=== PATIENT | female | born 1945 | race African-American/Black ===

== ENCOUNTER 2019-04-15 23:46 | Emergency (ER) | payer MEDICARE, MEDICAID ==
[~2019-04-15] VITALS: Ht 165.1 cm; Wt 104.0 kg
[~2019-04-15 23:46] MED LIST: BENAZAPRIL; CLONIDINE; HYDROCODONE; METF500T PO; RISP1 PO; SIMVASTATIN; ZYPREXA
[2019-04-16 04:25] LABS: BASOPHILS % 0.6 % (0.0-2.0); EOSINOPHILS % 1.5 % (0.0-5.0); HEMATOCRIT. 39.8 % (36.0-48.0); HEMOGLOBIN. 13.1 g/dL (12.0-16.0); LYMPHOCYTES % 41.6 % (20.0-50.0); MEAN CORPUSCULAR HEMOGLOBIN 29.4 pg (28.0-32.0); MEAN CORPUSCULAR VOLUME 89.4 fL (81.0-99.0); MEAN PLATELET VOLUME 9.2 fl (7.4-10.4); MONOCYTES % 5.7 % (2.0-8.0); NEUTROPHILS % 50.6 % (40.0-76.0); PLATELET 183 x1000/uL (130-400); RED BLOOD CELL COUNT 4.45 mill/uL (4.2-5.4); RED CELL DISTRIBUTION WIDTH 14.3 % (11.6-14.6)
[2019-04-16 04:33] LABS: CHLORIDE 111 mEq/L (98-107)
[2019-04-16 04:37] LABS: ETHANOL BLOOD < 10 mg/dL
[2019-04-16] MEDS ORDERED: CLONIDINE 0.2MG TABLET PO ONE (20:15)
[2019-04-16 21:03] LABS: CLARITY URINE CLEAR (CLEAR); COLOR URINE YELLOW (YELLOW); KETONES URINE NEGATIVE (NEGATIVE); LEUKOCYTE ESTERASE URINE NEGATIVE (NEGATIVE); NITRITE URINE NEGATIVE (NEGATIVE); OCCULT BLOOD URINE NEGATIVE (NEGATIVE); PH URINE 6.5 (4.5-8.0); PROTEIN URINE NEGATIVE (NEGATIVE); SPECIFIC GRAVITY URINE 1.015 (1.005-1.030); UROBILINOGEN URINE 0.2 E.U./dL (0.2-1.0)
[2019-04-16 21:12] LABS: *AMPHETAMINES SCREEN URINE NEGATIVE (NEGATIVE)
[2019-04-16 21:13] LABS: *BARBITURATES SCREEN URINE NEGATIVE (NEGATIVE); *BENZODIAZEPINES SCREEN URINE NEGATIVE (NEGATIVE); *COCAINE SCREEN URINE NEGATIVE (NEGATIVE); METHADONE URINE SCREEN NEGATIVE (NEGATIVE); OPIATES URINE SCREEN NEGATIVE (NEGATIVE)
[2019-04-16 21:14] LABS: CANNABINOID URINE SCREEN NEGATIVE (NEGATIVE); PHENCYCLIDINE URINE SCREEN NEGATIVE (NEGATIVE)
[2019-04-17 09:00] VITALS: BP 144/79
== END 2019-04-17 09:26 | disposition home or self-care (01) ==
LOC: ER 23:46
DX: F20.9 Schizophrenia, unspecified (principal); R45.851 Suicidal ideations; F31.9 Bipolar disorder, unspecified; E11.9 Type 2 diabetes mellitus without complications; I10 Essential (primary) hypertension; M19.90 Unspecified osteoarthritis, unspecified site; F17.210 Nicotine dependence, cigarettes, uncomplicated; Z79.84 Long term (current) use of oral hypoglycemic drugs; Z98.890 Other specified postprocedural states
CPT/HCPCS: 82962; 99284

== ENCOUNTER 2019-04-22 20:46 | Emergency (ER) | payer MEDICARE, MEDICAID ==
[~2019-04-22] VITALS: Ht 172.7 cm; Wt 88.0 kg
[2019-04-22 20:54] VITALS: BP 200/102
== END 2019-04-23 00:23 | disposition left against medical advice (07) ==
LOC: ER 21:17
DX: R10.9 Unspecified abdominal pain (principal); Z53.21 Procedure and treatment not carried out due to patient leaving prior to being seen by health care provider

== ENCOUNTER 2019-04-23 22:10 | Emergency (ER) | payer MEDICARE, MEDICAID ==
[~2019-04-23] VITALS: Ht 165.1 cm; Wt 104.0 kg
[2019-04-24] MEDS ORDERED: IBUPROFEN 400MG TABLET PO ONE (01:15)
[2019-04-24 04:57] VITALS: BP 108/55
== END 2019-04-24 05:02 | disposition home or self-care (01) ==
LOC: ER 22:18
DX: M25.562 Pain in left knee (principal); M25.561 Pain in right knee; M79.622 Pain in left upper arm; M62.838 Other muscle spasm; Y93.89 Activity, other specified; W18.39XA Other fall on same level, initial encounter; Y92.811 Bus as the place of occurrence of the external cause
CPT/HCPCS: 73060; 73562; 99284

== ENCOUNTER 2019-06-05 14:57 | Emergency (ER) | payer MEDICARE, MEDICAID ==
[~2019-06-05] VITALS: Ht 165.1 cm; Wt 78.0 kg
[2019-06-05] MEDS ORDERED: RISPERIDONE 1MG TABLET PO STA (17:42)
[2019-06-05 18:19] LABS: BASOPHILS % 0.9 % (0.0-2.0); EOSINOPHILS % 2.1 % (0.0-5.0); HEMATOCRIT. 42.6 % (36.0-48.0); HEMOGLOBIN. 13.8 g/dL (12.0-16.0); LYMPHOCYTES % 33.6 % (20.0-50.0); MEAN CORPUSCULAR HEMOGLOBIN 28.8 pg (28.0-32.0); MEAN CORPUSCULAR VOLUME 88.7 fL (81.0-99.0); MEAN PLATELET VOLUME 9.8 fl (7.4-10.4); MONOCYTES % 6.9 % (2.0-8.0); NEUTROPHILS % 56.5 % (40.0-76.0); PLATELET 191 x1000/uL (130-400); RED CELL DISTRIBUTION WIDTH 14.3 % (11.6-14.6)
[2019-06-05 18:24] LABS: CHLORIDE 112 mEq/L (98-107)
[2019-06-05 18:29] LABS: ETHANOL BLOOD < 10 mg/dL
[2019-06-05] MEDS ORDERED: SODIUM CHLORIDE 0.9% 500 ML IV ONE (19:56)
[2019-06-06 08:10] LABS: KETONES URINE NEGATIVE (NEGATIVE); LEUKOCYTE ESTERASE URINE NEGATIVE (NEGATIVE); NITRITE URINE NEGATIVE (NEGATIVE); OCCULT BLOOD URINE NEGATIVE (NEGATIVE); PH URINE 5.5 (4.5-8.0); PROTEIN URINE NEGATIVE (NEGATIVE); SPECIFIC GRAVITY URINE 1.028 (1.005-1.030); UROBILINOGEN URINE 0.2 E.U./dL (0.2-1.0)
[2019-06-06 08:11] LABS: CLARITY URINE SL HAZY (CLEAR); COLOR URINE YELLOW (YELLOW)
[2019-06-06 08:26] LABS: *AMPHETAMINES SCREEN URINE NEGATIVE (NEGATIVE); *BARBITURATES SCREEN URINE NEGATIVE (NEGATIVE); *BENZODIAZEPINES SCREEN URINE NEGATIVE (NEGATIVE); *COCAINE SCREEN URINE NEGATIVE (NEGATIVE)
[2019-06-06 08:27] LABS: CANNABINOID URINE SCREEN NEGATIVE (NEGATIVE); METHADONE URINE SCREEN NEGATIVE (NEGATIVE); OPIATES URINE SCREEN NEGATIVE (NEGATIVE); PHENCYCLIDINE URINE SCREEN NEGATIVE (NEGATIVE)
[2019-06-06 17:57] VITALS: BP 154/76
== END 2019-06-06 17:58 | disposition home or self-care (01) ==
LOC: ER 14:57
DX: R45.851 Suicidal ideations (principal); Z91.19 Patient's noncompliance with other medical treatment and regimen; I10 Essential (primary) hypertension; E11.9 Type 2 diabetes mellitus without complications; F20.9 Schizophrenia, unspecified
CPT/HCPCS: 36415; 71045; 80053; 80305; 80307; 80320; 80329; 81003; 85025; 99284; J7040; G0480

== ENCOUNTER 2019-07-04 20:05 | Emergency (ER) | payer MEDICARE, MEDICAID ==
[~2019-07-04] VITALS: Ht 162.6 cm; Wt 84.0 kg
[2019-07-05] MEDS ORDERED: ACETAMINOPHEN 325MG TABLET PO ONE (05:45)
[2019-07-05 07:35] VITALS: BP 146/93
== END 2019-07-05 08:19 | disposition left against medical advice (07) ==
LOC: ER 20:05
DX: J40 Bronchitis, not specified as acute or chronic (principal); M25.562 Pain in left knee; M25.561 Pain in right knee; I10 Essential (primary) hypertension; E11.9 Type 2 diabetes mellitus without complications; F20.9 Schizophrenia, unspecified; M19.90 Unspecified osteoarthritis, unspecified site; Z59.0 Homelessness; Z79.84 Long term (current) use of oral hypoglycemic drugs
CPT/HCPCS: 99283

== ENCOUNTER 2019-07-20 10:44 | Emergency (ER) | payer MEDICARE, MEDICAID ==
[~2019-07-20] VITALS: Ht 165.1 cm; Wt 97.0 kg
[2019-07-20] MEDS ORDERED: ACETAMINOPHEN 325MG TABLET PO ONE (11:30)
[2019-07-20 15:10] VITALS: BP 135/63
== END 2019-07-20 15:26 | disposition home or self-care (01) ==
LOC: ER 10:44
DX: G89.29 Other chronic pain (principal); M25.561 Pain in right knee; M25.562 Pain in left knee; M19.90 Unspecified osteoarthritis, unspecified site; E11.9 Type 2 diabetes mellitus without complications; I10 Essential (primary) hypertension; Z59.0 Homelessness; Z79.899 Other long term (current) drug therapy; Z79.84 Long term (current) use of oral hypoglycemic drugs
CPT/HCPCS: 99283

== ENCOUNTER 2019-07-31 17:45 | Emergency (ER) | payer MEDICARE, MEDICAID ==
[~2019-07-31] VITALS: Ht 165.1 cm; Wt 100.0 kg
[2019-07-31] MEDS ORDERED: ACETAMINOPHEN WITH CODEINE 300/30MG TABLET PO ONE (18:45)
[2019-07-31] MEDS ORDERED: IBUPROFEN 400MG TABLET PO ONE (22:45)
[2019-08-01 15:16] VITALS: BP 142/79
== END 2019-08-01 16:14 | disposition home or self-care (01) ==
LOC: ER 17:45
DX: M25.562 Pain in left knee (principal); M25.561 Pain in right knee; Z59.0 Homelessness; I10 Essential (primary) hypertension; E11.9 Type 2 diabetes mellitus without complications; Z79.899 Other long term (current) drug therapy; Z79.84 Long term (current) use of oral hypoglycemic drugs
CPT/HCPCS: 99283

== ENCOUNTER 2019-08-03 22:42 | Emergency (ER) | payer MEDICARE, MEDICAID ==
[~2019-08-03] VITALS: Ht 165.1 cm; Wt 96.0 kg
[2019-08-04 02:02] VITALS: BP 174/97
[2019-08-04 03:17] LABS: CLARITY URINE CLEAR (CLEAR); COLOR URINE YELLOW (YELLOW); KETONES URINE TRACE (NEGATIVE); LEUKOCYTE ESTERASE URINE NEGATIVE (NEGATIVE); NITRITE URINE NEGATIVE (NEGATIVE); OCCULT BLOOD URINE NEGATIVE (NEGATIVE); PROTEIN URINE NEGATIVE (NEGATIVE); SPECIFIC GRAVITY URINE 1.031 (1.005-1.030)
== END 2019-08-04 03:20 | disposition left against medical advice (07) ==
LOC: ER 22:42
DX: M79.662 Pain in left lower leg (principal); M79.661 Pain in right lower leg; F17.200 Nicotine dependence, unspecified, uncomplicated; I10 Essential (primary) hypertension; Z98.890 Other specified postprocedural states; Z79.899 Other long term (current) drug therapy
CPT/HCPCS: 81003; 99283

== ENCOUNTER 2019-08-20 19:36 | Emergency (ER) | payer MEDICARE, MEDICAID ==
[~2019-08-20] VITALS: Ht 165.1 cm; Wt 100.0 kg
[2019-08-21] MEDS ORDERED: DIPHENHYDRAMINE 25MG CAPSULE PO ONE (00:30)
[2019-08-21] MEDS ORDERED: HYDROCODONE/ACETAMINOPHEN 5/325MG TABLET PO ONE (00:30)
[2019-08-21 04:00] VITALS: BP 141/74
== END 2019-08-21 05:32 | disposition left against medical advice (07) ==
LOC: ER 19:36
DX: M17.0 Bilateral primary osteoarthritis of knee (principal); G89.29 Other chronic pain; J06.9 Acute upper respiratory infection, unspecified; Z59.0 Homelessness
CPT/HCPCS: 99283; Q0163

== ENCOUNTER 2019-08-21 06:48 | Emergency (ER) | payer MEDICARE, MEDICAID ==
[~2019-08-21] VITALS: Ht 167.6 cm; Wt 100.0 kg
[2019-08-21] MEDS ORDERED: METFORMIN HCL 500MG TABLET PO ONE (09:00)
[2019-08-21] MEDS ORDERED: BENZONATATE 100MG CAPSULE PO ONE (09:00)
[2019-08-21] MEDS ORDERED: ACETAMINOPHEN WITH CODEINE 300/30MG TABLET PO ONE (09:30)
[2019-08-21 11:15] VITALS: BP 171/92
== END 2019-08-21 11:50 | disposition home or self-care (01) ==
LOC: ER 06:48
DX: Z59.0 Homelessness (principal); I10 Essential (primary) hypertension; F17.210 Nicotine dependence, cigarettes, uncomplicated; Z71.6 Tobacco abuse counseling
CPT/HCPCS: 99284; 99406

== ENCOUNTER 2019-10-25 01:50 | Emergency (ER) | payer MEDICARE, MEDICAID ==
[~2019-10-25] VITALS: Ht 165.1 cm; Wt 107.0 kg
[2019-10-25 06:00] VITALS: BP 127/83
== END 2019-10-25 07:35 | disposition left against medical advice (07) ==
LOC: ER 01:50
DX: Z04.89 Encounter for examination and observation for other specified reasons (principal); F20.9 Schizophrenia, unspecified; I10 Essential (primary) hypertension; F31.9 Bipolar disorder, unspecified; M19.90 Unspecified osteoarthritis, unspecified site; E11.9 Type 2 diabetes mellitus without complications; Z59.0 Homelessness; Z79.84 Long term (current) use of oral hypoglycemic drugs
CPT/HCPCS: 99283

== ENCOUNTER 2019-10-25 08:58 | Emergency (ER) | payer MEDICARE, MEDICAID ==
[~2019-10-25] VITALS: Ht 172.7 cm; Wt 90.0 kg
[2019-10-25 09:24] VITALS: BP 139/88
== END 2019-10-25 11:42 | disposition home or self-care (01) ==
LOC: ER 08:58
DX: R05 Cough (principal); F20.9 Schizophrenia, unspecified; I10 Essential (primary) hypertension; E11.9 Type 2 diabetes mellitus without complications; M19.90 Unspecified osteoarthritis, unspecified site; F31.9 Bipolar disorder, unspecified; Z59.0 Homelessness; Z79.84 Long term (current) use of oral hypoglycemic drugs
CPT/HCPCS: 99281

== ENCOUNTER 2020-01-22 06:14 | Emergency (ER) | payer MEDICARE, MEDICAID ==
[~2020-01-22] VITALS: Ht 165.1 cm; Wt 104.3 kg
[2020-01-22] MEDS ORDERED: ACETAMINOPHEN 325MG TABLET PO ONE (06:45)
[2020-01-22 12:54] LABS: CHLORIDE 113 mEq/L (98-107)
[2020-01-22 13:02] LABS: BASOPHILS % 0.6 % (0.0-2.0); EOSINOPHILS % 1.8 % (0.0-5.0); HEMATOCRIT. 39.2 % (36.0-48.0); HEMOGLOBIN. 12.8 g/dL (12.0-16.0); LYMPHOCYTES % 42.3 % (20.0-50.0); MEAN CORPUSCULAR VOLUME 85.8 fL (81.0-99.0); MEAN PLATELET VOLUME 9.6 fl (7.4-10.4); MONOCYTES % 5.9 % (2.0-8.0); NEUTROPHILS % 49.4 % (40.0-76.0); PLATELET 186 x1000/uL (130-400); RED BLOOD CELL COUNT 4.57 mill/uL (4.2-5.4); RED CELL DISTRIBUTION WIDTH 15.6 % (11.6-14.6)
[2020-01-22 13:29] LABS: PROTHROMBIN TIME 10.7 sec (9.6-11.0)
[2020-01-22 16:48] LABS: CLARITY URINE CLOUDY (CLEAR); COLOR URINE DARK YELLOW (YELLOW); KETONES URINE NEGATIVE (NEGATIVE); LEUKOCYTE ESTERASE URINE TRACE (NEGATIVE); NITRITE URINE NEGATIVE (NEGATIVE); OCCULT BLOOD URINE NEGATIVE (NEGATIVE); PROTEIN URINE TRACE (NEGATIVE); SPECIFIC GRAVITY URINE 1.038 (1.005-1.030)
[2020-01-22 17:21] LABS: *AMPHETAMINES SCREEN URINE NEGATIVE (NEGATIVE); *BARBITURATES SCREEN URINE NEGATIVE (NEGATIVE); *BENZODIAZEPINES SCREEN URINE NEGATIVE (NEGATIVE); *COCAINE SCREEN URINE NEGATIVE (NEGATIVE)
[2020-01-22 17:22] LABS: CANNABINOID URINE SCREEN NEGATIVE (NEGATIVE); METHADONE URINE SCREEN NEGATIVE (NEGATIVE); OPIATES URINE SCREEN NEGATIVE (NEGATIVE); PHENCYCLIDINE URINE SCREEN NEGATIVE (NEGATIVE)
[2020-01-22] MEDS: NITROFURANTOIN 100MG M/M CAPSULE PO SCH (23:00)
[2020-01-23] MEDS: NITROFURANTOIN 100MG M/M CAPSULE PO SCH ×2 (09:00→21:32)
[2020-01-24 06:27] VITALS: BP 157/96
== END 2020-01-24 06:50 | disposition home or self-care (01) ==
LOC: ER 06:20
DX: M25.551 Pain in right hip (principal); M25.552 Pain in left hip; J06.9 Acute upper respiratory infection, unspecified; I10 Essential (primary) hypertension; N39.0 Urinary tract infection, site not specified; Z03.818 Encounter for observation for suspected exposure to other biological agents ruled out; Z59.0 Homelessness
CPT/HCPCS: 36415; 71045; 73521; 80053; 80305; 81003; 83880; 84484; 85025; 87635; 87804; 93005; 99285

== ENCOUNTER 2020-01-24 08:39 | Emergency (ER) | payer MEDICARE, MEDICAID ==
[~2020-01-24] VITALS: Ht 165.1 cm; Wt 104.0 kg
[2020-01-24 13:24] VITALS: BP 158/84
== END 2020-01-24 15:02 | disposition home or self-care (01) ==
LOC: ER 08:39
DX: Z59.8 Other problems related to housing and economic circumstances (principal); Z59.0 Homelessness; I10 Essential (primary) hypertension; Z63.8 Other specified problems related to primary support group; I25.10 Atherosclerotic heart disease of native coronary artery without angina pectoris; Z95.5 Presence of coronary angioplasty implant and graft; I25.2 Old myocardial infarction; E11.9 Type 2 diabetes mellitus without complications; Z79.84 Long term (current) use of oral hypoglycemic drugs; Z79.899 Other long term (current) drug therapy
CPT/HCPCS: 99283

== ENCOUNTER 2021-03-05 14:24 | Inpatient (IN) | payer MEDICARE, MEDICAID ==
[~2021-03-05] VITALS: Ht 165.1 cm; Wt 61.0 kg
[2021-03-05 15:49] LABS: BASOPHILS % 0.9 % (0.0-2.0); EOSINOPHILS % 1.2 % (0.0-5.0); HEMATOCRIT. 39.1 % (36.0-48.0); HEMOGLOBIN. 13.2 g/dL (12.0-16.0); LYMPHOCYTES % 42.5 % (20.0-50.0); MEAN CORPUSCULAR HEMOGLOBIN 28.7 pg (28.0-32.0); MEAN CORPUSCULAR VOLUME 85.2 fL (81.0-99.0); MEAN PLATELET VOLUME 9.2 fl (7.4-10.4); MONOCYTES % 4.9 % (2.0-8.0); NEUTROPHILS % 50.5 % (40.0-76.0); PLATELET 189 x1000/uL (130-400); RED BLOOD CELL COUNT 4.59 mill/uL (4.2-5.4); RED CELL DISTRIBUTION WIDTH 15.6 % (11.6-14.6)
[2021-03-05 15:54] LABS: CHLORIDE 115 mEq/L (98-107)
[2021-03-05] MEDS ORDERED: ASPIRIN 81MG TABLET PO ONE (18:00)
[2021-03-05] MEDS ORDERED: FUROSEMIDE 40MG/4ML VIAL IV ONE (18:00)
[2021-03-05] MEDS: ENOXAPARIN 40MG/0.4ML SYR SUBCUT SCH ×2 (20:00→20:30)
[2021-03-05] MEDS ORDERED: MAGNESIUM/ALUMINUM HYDROXIDE/SIMETHICONE 30ML UDC PO PRN (20:15)
[2021-03-05] MEDS ORDERED: MORPHINE SULFATE 2 MG/ML CPJ (NOT FOR IM USE) IV PRN (20:15)
[2021-03-05] MEDS ORDERED: DOCUSATE SODIUM 100MG CAPSULE PO PRN (20:15)
[2021-03-05] MEDS ORDERED: IPRATROPIUM/ALBUTEROL 0.5-3(2.5)MG/3ML NEB HHN PRN (20:15)
[2021-03-05] MEDS ORDERED: ACETAMINOPHEN 325MG TABLET PO PRN (20:15)
[2021-03-05] MEDS ORDERED: ONDANSETRON HCL 4MG/2ML INJ IV PRN (20:15)
[2021-03-05] MEDS ORDERED: GUAIFENESIN 200MG/10ML SUGAR FREE UDC PO PRN (20:15)
[2021-03-05] MEDS ORDERED: HYDRALAZINE 20MG/ML VIAL IV PRN (20:15)
[2021-03-05] MEDS ORDERED: DIPHENHYDRAMINE 50MG/ML VIAL IV PRN (20:15)
[2021-03-05] MEDS ORDERED: LORAZEPAM 2MG/ML CPJ IV PRN (20:15)
[2021-03-05] MEDS: SODIUM CHLORIDE 0.9% INJ 3ML FLUSH IVF SCH (20:18)
[2021-03-05 23:35] VITALS: BP 134/83
[2021-03-06] VITALS (13 sets, daily range): BP systolic 128–160; BP diastolic 73–99
[2021-03-06 06:05] LABS: CHLORIDE 110 mEq/L (98-107)
[2021-03-06] MEDS ORDERED: CARI350T27 PO (06:07)
[2021-03-06] MEDS ORDERED: HYDR-4009 PO (06:07)
[2021-03-06] MEDS: SODIUM CHLORIDE 0.9% INJ 3ML FLUSH IVF SCH ×2 (06:20→14:41)
[2021-03-06 06:46] LABS: BASOPHILS % 0.5 % (0.0-2.0); EOSINOPHILS % 3.1 % (0.0-5.0); HEMATOCRIT. 36.9 % (36.0-48.0); HEMOGLOBIN. 12.3 g/dL (12.0-16.0); LYMPHOCYTES % 45.6 % (20.0-50.0); MEAN CORPUSCULAR HEMOGLOBIN 28.6 pg (28.0-32.0); MEAN CORPUSCULAR VOLUME 85.9 fL (81.0-99.0); MEAN PLATELET VOLUME 9.5 fl (7.4-10.4); MONOCYTES % 6.2 % (2.0-8.0); NEUTROPHILS % 44.6 % (40.0-76.0); PLATELET 167 x1000/uL (130-400); RED BLOOD CELL COUNT 4.29 mill/uL (4.2-5.4); RED CELL DISTRIBUTION WIDTH 15.4 % (11.6-14.6)
[2021-03-06] MEDS: HYDROCODONE/ACETAMINOPHEN 5/325MG TABLET PO PRN (09:47)
[2021-03-06 11:39] LABS: T4 FREE 1.04 ng/dL (0.76-1.46)
[2021-03-06] MEDS: ENOXAPARIN 30MG/0.3ML SYR SUBCUT SCH ×2 (14:40→22:42)
[2021-03-06 15:21] LABS: CREATINE KINASE MB FRACTION 1.9 ng/mL (0.5-3.6)
[2021-03-06 15:22] LABS: CREATINE KINASE 119 IU/L (26-192)
[2021-03-06] MEDS: CLONIDINE 0.1MG TABLET PO PRN (17:43)
[2021-03-07] VITALS (12 sets, daily range): BP systolic 107–161; BP diastolic 63–100
[2021-03-07 06:25] LABS: CREATINE KINASE 126 IU/L (26-192)
[2021-03-07] MEDS: ENOXAPARIN 30MG/0.3ML SYR SUBCUT SCH (08:18)
[2021-03-07] MEDS: HYDROCODONE/ACETAMINOPHEN 5/325MG TABLET PO PRN (08:34)
[2021-03-07 15:59] LABS: CREATINE KINASE 119 IU/L (26-192)
[2021-03-07 16:00] LABS: CREATINE KINASE MB FRACTION 1.6 ng/mL (0.5-3.6)
[2021-03-07] MEDS: CLONIDINE 0.1MG TABLET PO PRN (17:13)
== END 2021-03-07 20:23 | DRG 194 ==
LOC: ER 15:27 → 3WST 19:46 → ENRESERV 22:23
PROVIDERS: ADMIT Internal Medicine; ATTEND Internal Medicine
PROC: 4A10X4Z Monitoring of Central Nervous Electrical Activity, External Approach (ICD-10-PCS; principal; 2021-03-07)
DX: I11.0 Hypertensive heart disease with heart failure (principal); J96.00 Acute respiratory failure, unspecified whether with hypoxia or hypercapnia; I50.41 Acute combined systolic (congestive) and diastolic (congestive) heart failure; E66.9 Obesity, unspecified; E11.9 Type 2 diabetes mellitus without complications; E78.5 Hyperlipidemia, unspecified; I25.10 Atherosclerotic heart disease of native coronary artery without angina pectoris; I25.2 Old myocardial infarction; Z59.0 Homelessness; Z91.81 History of falling; Z95.0 Presence of cardiac pacemaker; Z87.891 Personal history of nicotine dependence; Z79.899 Other long term (current) drug therapy; Z79.84 Long term (current) use of oral hypoglycemic drugs; Z68.22 Body mass index [BMI] 22.0-22.9, adult; R53.1 Weakness; R26.81 Unsteadiness on feet; M25.561 Pain in right knee; M13.0 Polyarthritis, unspecified; G90.9 Disorder of the autonomic nervous system, unspecified
CPT/HCPCS: 36415; 71045; 73560; 80053; 80061; 82550; 82553; 83036; 83880; 84439; 84443; 84484; 85025; 85379; 93005; 93306; 93880; 93970; 95816; 97162; 99291; J1650; J1940

== ENCOUNTER 2021-05-05 11:29 | Inpatient (IN) | payer MEDICARE, MEDICAID ==
[~2021-05-05] VITALS: Ht 166.4 cm; Wt 110.3 kg
[~2021-05-05 11:29] MED LIST changes: -BENAZAPRIL; +BENAZAPRIL PO; +CARI350T27 PO; +HYDR-4009 PO; -HYDROCODONE
[2021-05-05] MEDS ORDERED: ONDANSETRON HCL 4MG/2ML INJ IV ONE (13:00)
[2021-05-05] MEDS ORDERED: SODIUM CHLORIDE 0.9% 1,000 ML IV ONE (13:00)
[2021-05-05 13:19] LABS: CHLORIDE 113 mEq/L (98-107)
[2021-05-05 13:23] LABS: ETHANOL BLOOD < 10 mg/dL
[2021-05-05 13:24] LABS: PROTHROMBIN TIME 10.9 sec (9.6-11.0)
[2021-05-05 13:28] LABS: BASOPHILS % 0.4 % (0.0-2.0); EOSINOPHILS % 1.4 % (0.0-5.0); HEMATOCRIT. 39.8 % (36.0-48.0); LYMPHOCYTES % 34.9 % (20.0-50.0); MEAN CORPUSCULAR HEMOGLOBIN 28.1 pg (28.0-32.0); MEAN CORPUSCULAR VOLUME 86.3 fL (81.0-99.0); MEAN PLATELET VOLUME 9.3 fl (7.4-10.4); MONOCYTES % 4.8 % (2.0-8.0); NEUTROPHILS % 58.5 % (40.0-76.0); PLATELET 201 x1000/uL (130-400); RED BLOOD CELL COUNT 4.62 mill/uL (4.2-5.4); RED CELL DISTRIBUTION WIDTH 14.9 % (11.6-14.6)
[2021-05-05 19:06] LABS: CLARITY URINE CLOUDY (CLEAR); COLOR URINE DARK YELLOW (YELLOW); KETONES URINE TRACE (NEGATIVE); LEUKOCYTE ESTERASE URINE NEGATIVE (NEGATIVE); NITRITE URINE NEGATIVE (NEGATIVE); OCCULT BLOOD URINE NEGATIVE (NEGATIVE); PH URINE 5.5 (4.5-8.0); PROTEIN URINE NEGATIVE (NEGATIVE); SPECIFIC GRAVITY URINE 1.025 (1.005-1.030)
[2021-05-05] MEDS ORDERED: ACETAMINOPHEN 325MG TABLET PO PRN ×2 (19:15)
[2021-05-05] MEDS ORDERED: MAGNESIUM/ALUMINUM HYDROXIDE/SIMETHICONE 30ML UDC PO PRN (19:15)
[2021-05-05] MEDS ORDERED: ONDANSETRON HCL 4MG/2ML INJ IV PRN (19:15)
[2021-05-05] MEDS ORDERED: GUAIFENESIN 200MG/10ML SUGAR FREE UDC PO PRN (19:15)
[2021-05-05] MEDS ORDERED: ENOXAPARIN 40MG/0.4ML SYR SUBCUT SCH (19:15)
[2021-05-05] MEDS ORDERED: IPRATROPIUM/ALBUTEROL 0.5-3(2.5)MG/3ML NEB NEB PRN (19:15)
[2021-05-05] MEDS ORDERED: NITROGLYCERIN 0.4MG TABLET SL SL PRN (19:15)
[2021-05-05 19:30] LABS: *AMPHETAMINES SCREEN URINE NEGATIVE (NEGATIVE); *BARBITURATES SCREEN URINE NEGATIVE (NEGATIVE)
[2021-05-05] MEDS ORDERED: NALOXONE HCL 0.4MG/ML VIAL IV PRN (19:30)
[2021-05-05 19:31] LABS: *BENZODIAZEPINES SCREEN URINE NEGATIVE (NEGATIVE); *COCAINE SCREEN URINE NEGATIVE (NEGATIVE); METHADONE URINE SCREEN NEGATIVE (NEGATIVE); OPIATES URINE SCREEN NEGATIVE (NEGATIVE); PHENCYCLIDINE URINE SCREEN NEGATIVE (NEGATIVE)
[2021-05-05 19:32] LABS: CANNABINOID URINE SCREEN NEGATIVE (NEGATIVE)
[2021-05-05] MEDS: CLONIDINE 0.1MG TABLET PO PRN (19:48)
[2021-05-05 19:54] LABS: FOLIC ACID (FOLATE) SERUM 11.7 ng/mL (>5.38)
[2021-05-05] MEDS ORDERED: LEVOFLOXACIN 500MG PREMIX 100 ML IV SCH (20:00)
[2021-05-05] MEDS ORDERED: CEFTRIAXONE 1 G PREMIX 50 ML IV NR (20:00)
[2021-05-05] MEDS: ENOXAPARIN 30MG/0.3ML SYR SUBCUT SCH (20:46)
[2021-05-05] MEDS: TRAMADOL 50MG TABLET PO PRN (20:46)
[2021-05-05] MEDS ORDERED: ZOLPIDEM TARTRATE 5MG TABLET PO PRN (21:00)
[2021-05-05 22:48] VITALS: BP 121/59
[2021-05-05] MEDS: ASCORBIC ACID 500 MG TABLET PO SCH (23:56)
[2021-05-05] MEDS: FAMOTIDINE 20MG TABLET PO SCH (23:56)
[2021-05-06] VITALS: BP 107/61
[2021-05-06 00:07] LABS: CREATINE KINASE 105 IU/L (26-192)
[2021-05-06 00:08] LABS: CREATINE KINASE MB FRACTION 1.8 ng/mL (0.5-3.6)
[2021-05-06 04:00] VITALS: BP 118/59
[2021-05-06] MEDS: METOCLOPRAMIDE 10MG/10 ML UDC PO SCH ×3 (06:45→16:40)
[2021-05-06 08:00] VITALS: BP 127/74
[2021-05-06 08:00] LABS: CHLORIDE 112 mEq/L (98-107)
[2021-05-06 08:04] LABS: BASOPHILS % 0.4 % (0.0-2.0); EOSINOPHILS % 2.2 % (0.0-5.0); HEMATOCRIT. 36.2 % (36.0-48.0); HEMOGLOBIN. 11.5 g/dL (12.0-16.0); LYMPHOCYTES % 47.1 % (20.0-50.0); MEAN CORPUSCULAR HEMOGLOBIN 27.6 pg (28.0-32.0); MEAN CORPUSCULAR VOLUME 86.7 fL (81.0-99.0); MEAN PLATELET VOLUME 9.6 fl (7.4-10.4); MONOCYTES % 5.2 % (2.0-8.0); NEUTROPHILS % 45.1 % (40.0-76.0); PLATELET 176 x1000/uL (130-400); RED BLOOD CELL COUNT 4.17 mill/uL (4.2-5.4); RED CELL DISTRIBUTION WIDTH 14.8 % (11.6-14.6)
[2021-05-06 08:08] LABS: PHOSPHORUS 3.9 mg/dL (2.5-4.9)
[2021-05-06 08:12] LABS: CREATINE KINASE 114 IU/L (26-192)
[2021-05-06 08:14] LABS: CREATINE KINASE MB FRACTION 2.4 ng/mL (0.5-3.6)
[2021-05-06] MEDS: ENOXAPARIN 30MG/0.3ML SYR SUBCUT SCH ×2 (10:05→21:02)
[2021-05-06] MEDS: FAMOTIDINE 20MG TABLET PO SCH ×2 (10:06→21:02)
[2021-05-06] MEDS: ZINC SULFATE 220 MG ( 50 ) CAPSULE PO SCH (10:06)
[2021-05-06] MEDS: ASPIRIN 325MG EC TABLET PO SCH (10:06)
[2021-05-06] MEDS: ASCORBIC ACID 500 MG TABLET PO SCH ×2 (10:06→21:02)
[2021-05-06] MEDS: CHOLECALCIFEROL (D3) 1000 UNIT TABLET PO SCH (10:06)
[2021-05-06 12:00] VITALS: BP 174/90
[2021-05-06] MEDS: CLONIDINE 0.1MG TABLET PO PRN (13:57)
[2021-05-06] MEDS: TRAMADOL 50MG TABLET PO PRN (14:55)
[2021-05-06] MEDS: CEFTRIAXONE 1,000 MG in DEXTROSE 5% WATER 50 ML IV SCH (14:55)
[2021-05-06 16:00] VITALS: BP 116/67
[2021-05-06 20:00] VITALS: BP 114/66
[2021-05-06] MEDS: LEVOFLOXACIN 500MG PREMIX 100 ML IV SCH (21:01)
[2021-05-07] VITALS: BP 111/50
[2021-05-07 03:57] VITALS: BP 112/60
[2021-05-07] MEDS: METOCLOPRAMIDE 10MG/10 ML UDC PO SCH ×3 (06:09→16:27)
[2021-05-07 08:00] VITALS: BP 102/64
[2021-05-07] MEDS: CHOLECALCIFEROL (D3) 1000 UNIT TABLET PO SCH (09:27)
[2021-05-07] MEDS: ZINC SULFATE 220 MG ( 50 ) CAPSULE PO SCH (09:27)
[2021-05-07] MEDS: ENOXAPARIN 30MG/0.3ML SYR SUBCUT SCH ×2 (09:27→21:37)
[2021-05-07] MEDS: ASCORBIC ACID 500 MG TABLET PO SCH ×2 (09:27→21:37)
[2021-05-07] MEDS: FAMOTIDINE 20MG TABLET PO SCH ×2 (09:27→21:37)
[2021-05-07] MEDS: ASPIRIN 325MG EC TABLET PO SCH (09:27)
[2021-05-07 12:00] VITALS: BP 132/82
[2021-05-07] MEDS: CEFTRIAXONE 1,000 MG in DEXTROSE 5% WATER 50 ML IV SCH (15:19)
[2021-05-07 16:00] VITALS: BP 143/82
[2021-05-07] MEDS: DOCUSATE SODIUM 100MG CAPSULE PO PRN (18:40)
[2021-05-07 20:00] VITALS: BP 146/84
[2021-05-07] MEDS: LEVOFLOXACIN 500MG PREMIX 100 ML IV SCH (21:29)
[2021-05-08] VITALS: BP 131/73
[2021-05-08 04:00] VITALS: BP 142/65
[2021-05-08] MEDS: METOCLOPRAMIDE 10MG/10 ML UDC PO SCH ×3 (06:21→16:40)
[2021-05-08 08:00] VITALS: BP 157/73
[2021-05-08] MEDS: CHOLECALCIFEROL (D3) 1000 UNIT TABLET PO SCH (08:26)
[2021-05-08] MEDS: FAMOTIDINE 20MG TABLET PO SCH ×2 (08:27→20:31)
[2021-05-08] MEDS: ZINC SULFATE 220 MG ( 50 ) CAPSULE PO SCH (08:27)
[2021-05-08] MEDS: ASCORBIC ACID 500 MG TABLET PO SCH ×2 (08:27→20:32)
[2021-05-08] MEDS: ASPIRIN 325MG EC TABLET PO SCH (08:27)
[2021-05-08] MEDS: ENOXAPARIN 30MG/0.3ML SYR SUBCUT SCH ×2 (08:27→20:15)
[2021-05-08] MEDS: TRAMADOL 50MG TABLET PO PRN ×2 (08:38→20:19)
[2021-05-08 12:00] VITALS: BP 152/81
[2021-05-08] MEDS: CEFTRIAXONE 1,000 MG in DEXTROSE 5% WATER 50 ML IV SCH (14:30)
[2021-05-08 16:00] VITALS: BP 157/89
[2021-05-08 20:00] VITALS: BP 146/77
[2021-05-08] MEDS: LEVOFLOXACIN 500MG PREMIX 100 ML IV SCH (20:14)
[2021-05-09] VITALS: BP 123/69
[2021-05-09] MEDS: TRAMADOL 50MG TABLET PO PRN (03:53)
[2021-05-09 04:00] VITALS: BP 151/81
[2021-05-09] MEDS: METOCLOPRAMIDE 10MG/10 ML UDC PO SCH ×3 (06:12→16:40)
[2021-05-09 08:00] VITALS: BP 143/74
[2021-05-09] MEDS: ASPIRIN 325MG EC TABLET PO SCH (09:23)
[2021-05-09] MEDS: CHOLECALCIFEROL (D3) 1000 UNIT TABLET PO SCH (09:23)
[2021-05-09] MEDS: ASCORBIC ACID 500 MG TABLET PO SCH ×2 (09:23→20:27)
[2021-05-09] MEDS: FAMOTIDINE 20MG TABLET PO SCH ×2 (09:23→20:27)
[2021-05-09] MEDS: ZINC SULFATE 220 MG ( 50 ) CAPSULE PO SCH (09:23)
[2021-05-09] MEDS: ENOXAPARIN 30MG/0.3ML SYR SUBCUT SCH ×2 (09:23→20:27)
[2021-05-09 12:00] VITALS: BP 123/78
[2021-05-09] MEDS: CEFTRIAXONE 1,000 MG in DEXTROSE 5% WATER 50 ML IV SCH (15:11)
[2021-05-09 16:00] VITALS: BP 138/72
[2021-05-09 20:00] VITALS: BP 104/52
[2021-05-09] MEDS ORDERED: LEVOFLOXACIN 500MG TABLET PO SCH (20:00)
[2021-05-09] MEDS: DOCUSATE SODIUM 100MG CAPSULE PO PRN (20:27)
[2021-05-10] VITALS: BP 142/77
[2021-05-10 04:00] VITALS: BP 108/57
[2021-05-10] MEDS: METOCLOPRAMIDE 10MG/10 ML UDC PO SCH ×3 (06:29→16:26)
[2021-05-10 08:00] VITALS: BP 173/94
[2021-05-10] MEDS: ZINC SULFATE 220 MG ( 50 ) CAPSULE PO SCH (08:39)
[2021-05-10] MEDS: ASCORBIC ACID 500 MG TABLET PO SCH ×2 (08:39→21:15)
[2021-05-10] MEDS: FAMOTIDINE 20MG TABLET PO SCH ×2 (08:39→21:15)
[2021-05-10] MEDS: CHOLECALCIFEROL (D3) 1000 UNIT TABLET PO SCH (08:39)
[2021-05-10] MEDS: ASPIRIN 325MG EC TABLET PO SCH (08:40)
[2021-05-10] MEDS: ENOXAPARIN 30MG/0.3ML SYR SUBCUT SCH ×2 (08:40→21:15)
[2021-05-10] MEDS: TRAMADOL 50MG TABLET PO PRN ×2 (08:48→15:24)
[2021-05-10 12:00] VITALS: BP 126/86
[2021-05-10] MEDS: CEFTRIAXONE 1,000 MG in DEXTROSE 5% WATER 50 ML IV SCH (14:00)
[2021-05-10 16:00] VITALS: BP 158/78
[2021-05-10 20:00] VITALS: BP 134/76
[2021-05-11] VITALS: BP 135/68
[2021-05-11 04:00] VITALS: BP_SYST 100; BP_SYST 129; BP_DIAS 58; BP_DIAS 82
[2021-05-11] MEDS: METOCLOPRAMIDE 10MG/10 ML UDC PO SCH ×3 (06:26→16:40)
[2021-05-11 08:00] VITALS: BP 126/60
[2021-05-11] MEDS: ENOXAPARIN 30MG/0.3ML SYR SUBCUT SCH ×2 (08:23→20:13)
[2021-05-11] MEDS: ASPIRIN 325MG EC TABLET PO SCH (08:23)
[2021-05-11] MEDS: FAMOTIDINE 20MG TABLET PO SCH ×2 (08:23→20:13)
[2021-05-11] MEDS: CHOLECALCIFEROL (D3) 1000 UNIT TABLET PO SCH (08:23)
[2021-05-11] MEDS: ASCORBIC ACID 500 MG TABLET PO SCH ×2 (08:23→20:13)
[2021-05-11] MEDS: ZINC SULFATE 220 MG ( 50 ) CAPSULE PO SCH (08:25)
[2021-05-11 12:00] VITALS: BP 123/75
[2021-05-11 16:00] VITALS: BP 130/71
[2021-05-11] MEDS: DOCUSATE SODIUM 100MG CAPSULE PO PRN (18:02)
[2021-05-11 20:00] VITALS: BP 149/92
[2021-05-12] VITALS: BP 132/82
[2021-05-12 04:00] VITALS: BP 125/72
[2021-05-12] MEDS: METOCLOPRAMIDE 10MG/10 ML UDC PO SCH ×4 (06:16→16:39)
[2021-05-12 08:00] VITALS: BP 136/79
[2021-05-12] MEDS: ENOXAPARIN 30MG/0.3ML SYR SUBCUT SCH (08:00)
[2021-05-12] MEDS: CHOLECALCIFEROL (D3) 1000 UNIT TABLET PO SCH (08:49)
[2021-05-12] MEDS: ASPIRIN 325MG EC TABLET PO SCH (08:49)
[2021-05-12] MEDS: ZINC SULFATE 220 MG ( 50 ) CAPSULE PO SCH (08:49)
[2021-05-12] MEDS: ASCORBIC ACID 500 MG TABLET PO SCH (08:49)
[2021-05-12] MEDS: FAMOTIDINE 20MG TABLET PO SCH (08:49)
[2021-05-12 12:00] VITALS: BP 148/79
[2021-05-12] MEDS ORDERED: ESCI5SOL2 PO (15:23)
[2021-05-12] MEDS ORDERED: LORA10TA7 PO (15:24)
[2021-05-12] MEDS ORDERED: ARIP10TA16 PO (15:24)
[2021-05-12 15:47] VITALS: BP 119/78
== END 2021-05-12 17:56 | DRG 720 ==
LOC: ER 11:29 → 7EST 18:16 → EDBEDREQ 18:21 → EDBEDREQTM 18:21 → SUPCPDRO 19:07 → ENRESERV 20:53
PROVIDERS: ADMIT Internal Medicine; ATTEND Internal Medicine
DX: A41.9 Sepsis, unspecified organism (principal); E87.2 Acidosis; I50.9 Heart failure, unspecified; E11.9 Type 2 diabetes mellitus without complications; E86.0 Dehydration; R65.20 Severe sepsis without septic shock; I11.0 Hypertensive heart disease with heart failure; I25.10 Atherosclerotic heart disease of native coronary artery without angina pectoris; Z20.822 Contact with and (suspected) exposure to COVID-19; Z59.0 Homelessness; Z82.49 Family history of ischemic heart disease and other diseases of the circulatory system; Z83.3 Family history of diabetes mellitus; Z95.810 Presence of automatic (implantable) cardiac defibrillator; I25.2 Old myocardial infarction; Z79.891 Long term (current) use of opiate analgesic; Z79.899 Other long term (current) drug therapy
CPT/HCPCS: 36415; 71045; 74176; 80053; 80061; 80305; 80320; 81003; 82550; 82553; 82607; 82728; 82746; 82962; 83540; 83550; 83605; 83615; 83735; 83880; 84100; 84145; 84484; 85025; 85379; 87426; 93005; 93970; 97110; 97116; 97162; 97166; 99285; C1893; J0696; J1650; J1956; J7030; J7040; J7060; J8597; G0480

== ENCOUNTER 2022-10-27 10:29 | Inpatient (IN) | payer MEDICAID, MEDICARE ==
[~2022-10-27] VITALS: Ht 160 cm; Wt 110.2 kg
[~2022-10-27 10:29] MED LIST changes: +ARIP10TA56 PO; +BENA-8 PO; +ESCI20TA37 PO; +ESCI5SOL2 PO; +LORA10TA7 PO; +POTA8CAP20 PO
[2022-10-27] MEDS ORDERED: NITROGLYCERIN OINT 1GM/INCH UDPKT TD ONE (11:15)
[2022-10-27] MEDS ORDERED: ASPIRIN 81MG TABLET PO ONE (11:15)
[2022-10-27 12:27] LABS: BASOPHILS % 0.5 % (0.0-2.0); EOSINOPHILS % 1.5 % (0.0-5.0); HEMATOCRIT. 41.5 % (36.0-48.0); HEMOGLOBIN. 13.3 g/dL (12.0-16.0); LYMPHOCYTES % 36.4 % (20.0-50.0); MEAN CORPUSCULAR VOLUME 87.5 fL (81.0-99.0); MEAN PLATELET VOLUME 9.1 fl (7.4-10.4); MONOCYTES % 4.6 % (2.0-8.0); PLATELET 232 x1000/uL (130-400); RED BLOOD CELL COUNT 4.74 mill/uL (4.2-5.4); RED CELL DISTRIBUTION WIDTH 14.9 % (11.6-14.6)
[2022-10-27 12:35] LABS: CHLORIDE 111 mEq/L (98-107)
[2022-10-27 12:44] LABS: CREATINE KINASE 219 IU/L (26-192)
[2022-10-27] MEDS ORDERED: DIPHENHYDRAMINE 50MG/ML VIAL IV PRN (15:45)
[2022-10-27] MEDS ORDERED: CLONIDINE 0.1MG TABLET PO PRN (15:45)
[2022-10-27] MEDS ORDERED: ONDANSETRON HCL 4MG/2ML INJ IV PRN (15:45)
[2022-10-27] MEDS ORDERED: IPRATROPIUM/ALBUTEROL 0.5-3(2.5)MG/3ML NEB HHN PRN (15:45)
[2022-10-27] MEDS ORDERED: ASPIRIN 81MG TABLET PO NR (15:45)
[2022-10-27] MEDS ORDERED: NITROGLYCERIN OINT 1GM/INCH UDPKT TD NR (15:45)
[2022-10-27 19:30] VITALS: BP 156/68
[2022-10-27 20:00] VITALS: BP 156/68
[2022-10-27] MEDS: HYDROCODONE/ACETAMINOPHEN 10/325MG TABLET PO PRN (22:16)
[2022-10-28] VITALS (7 sets, daily range): BP systolic 117–149; BP diastolic 68–104
[2022-10-28] MEDS: ALBUTEROL (0.083%) 2.5MG/3ML NEB HHN PRN (05:17)
[2022-10-28] MEDS: IPRATROPIUM BROMIDE (0.02%) 0.5MG/2.5ML NEB HHN PRN (05:17)
[2022-10-28 06:09] LABS: BASOPHILS % 0.6 % (0.0-2.0); EOSINOPHILS % 2.6 % (0.0-5.0); HEMATOCRIT. 39.5 % (36.0-48.0); HEMOGLOBIN. 12.6 g/dL (12.0-16.0); LYMPHOCYTES % 42.6 % (20.0-50.0); MEAN CORPUSCULAR HEMOGLOBIN 27.8 pg (28.0-32.0); MEAN PLATELET VOLUME 9.5 fl (7.4-10.4); MONOCYTES % 6.2 % (2.0-8.0); PLATELET 220 x1000/uL (130-400); RED BLOOD CELL COUNT 4.53 mill/uL (4.2-5.4); RED CELL DISTRIBUTION WIDTH 14.9 % (11.6-14.6)
[2022-10-28 06:21] LABS: CHLORIDE 114 mEq/L (98-107)
[2022-10-28] MEDS ORDERED: INFLUENZA VACCINE 05/PF 0.5 ML SYRINGE IM ONE (09:00)
[2022-10-28] MEDS ORDERED: PNEUMOCOCCAL 23-VAL P-SAC VAC 0.5 ML IM ONE (09:00)
[2022-10-28] MEDS: HYDROCODONE/ACETAMINOPHEN 10/325MG TABLET PO PRN (09:14)
[2022-10-28] MEDS: FUROSEMIDE 40MG/4ML VIAL IVP SCH ×2 (09:15→18:43)
[2022-10-28] MEDS: SPIRONOLACTONE 25MG TABLET PO SCH (09:15)
[2022-10-28] MEDS: LIDOCAINE 5% PATCH TOP SCH (11:58)
[2022-10-29] MEDS: HYDROCODONE/ACETAMINOPHEN 10/325MG TABLET PO PRN ×3 (00:22→20:30)
[2022-10-29 04:27] VITALS: BP 117/80
[2022-10-29 07:23] LABS: CHLORIDE 109 mEq/L (98-107)
[2022-10-29 08:00] VITALS: BP 140/89
[2022-10-29] MEDS ORDERED: SPIR25TA PO (09:23)
[2022-10-29] MEDS ORDERED: FURO40TA5 MT (09:23)
[2022-10-29] MEDS: FUROSEMIDE 40MG TABLET PO SCH (09:30)
[2022-10-29] MEDS: LOSARTAN POTASSIUM 25 MG TABLET PO SCH (10:02)
[2022-10-29] MEDS: LIDOCAINE 5% PATCH TOP SCH (10:04)
[2022-10-29] MEDS: SPIRONOLACTONE 25MG TABLET PO SCH (10:04)
[2022-10-29 12:00] VITALS: BP 141/74
[2022-10-29] MEDS ORDERED: NALOXONE HCL 0.4MG/ML VIAL IV PRN (12:45)
[2022-10-29 16:00] VITALS: BP 148/87
[2022-10-29 20:14] VITALS: BP 124/52
[2022-10-30] VITALS: BP 129/95
[2022-10-30 04:12] VITALS: BP 109/77
[2022-10-30] MEDS: HYDROCODONE/ACETAMINOPHEN 10/325MG TABLET PO PRN ×3 (06:35→16:35)
[2022-10-30 08:00] VITALS: BP 148/58
[2022-10-30] MEDS: LIDOCAINE 5% PATCH TOP SCH (09:00)
[2022-10-30] MEDS: FUROSEMIDE 40MG TABLET PO SCH (09:01)
[2022-10-30] MEDS: LOSARTAN POTASSIUM 25 MG TABLET PO SCH (09:01)
[2022-10-30] MEDS: SPIRONOLACTONE 25MG TABLET PO SCH (09:01)
[2022-10-30 12:00] VITALS: BP 142/80
[2022-10-30 20:00] VITALS: BP 135/93
[2022-10-31] VITALS (7 sets, daily range): BP systolic 109–172; BP diastolic 72–99
[2022-10-31] MEDS: HYDROCODONE/ACETAMINOPHEN 10/325MG TABLET PO PRN ×3 (00:16→21:11)
[2022-10-31] MEDS: ALBUTEROL (0.083%) 2.5MG/3ML NEB HHN PRN ×2 (00:38→15:17)
[2022-10-31] MEDS: IPRATROPIUM BROMIDE (0.02%) 0.5MG/2.5ML NEB HHN PRN ×2 (00:38→15:17)
[2022-10-31] MEDS: LOSARTAN POTASSIUM 25 MG TABLET PO SCH (08:22)
[2022-10-31] MEDS: LIDOCAINE 5% PATCH TOP SCH (08:22)
[2022-10-31] MEDS: FUROSEMIDE 40MG TABLET PO SCH (08:23)
[2022-10-31] MEDS: SPIRONOLACTONE 25MG TABLET PO SCH (08:23)
[2022-10-31] MEDS: NYSTATIN 100,000 UNITS/GM CREAM 15GM TOP SCH (21:10)
[2022-11-01] VITALS: BP 102/66
[2022-11-01 04:00] VITALS: BP 133/104
[2022-11-01 08:00] VITALS: BP 139/77
[2022-11-01] MEDS: SPIRONOLACTONE 25MG TABLET PO SCH (08:57)
[2022-11-01] MEDS: LIDOCAINE 5% PATCH TOP SCH (08:58)
[2022-11-01] MEDS: FUROSEMIDE 40MG TABLET PO SCH (08:58)
[2022-11-01] MEDS: LOSARTAN POTASSIUM 25 MG TABLET PO SCH (08:58)
[2022-11-01] MEDS: NYSTATIN 100,000 UNITS/GM CREAM 15GM TOP SCH ×2 (08:59→21:05)
[2022-11-01 12:00] VITALS: BP 104/53
[2022-11-01 16:00] VITALS: BP 108/73
[2022-11-01 20:00] VITALS: BP 107/75
[2022-11-01] MEDS: HYDROCODONE/ACETAMINOPHEN 10/325MG TABLET PO PRN (21:09)
[2022-11-02] VITALS: BP 127/77
[2022-11-02 04:00] VITALS: BP 118/57
[2022-11-02] MEDS: ACETAMINOPHEN 325MG TABLET PO PRN (07:35)
[2022-11-02 08:00] VITALS: BP 133/90
[2022-11-02] MEDS: FUROSEMIDE 40MG TABLET PO SCH (09:00)
[2022-11-02] MEDS: NYSTATIN 100,000 UNITS/GM CREAM 15GM TOP SCH ×2 (11:58→21:18)
[2022-11-02] MEDS: LIDOCAINE 5% PATCH TOP SCH (11:58)
[2022-11-02] MEDS: LOSARTAN POTASSIUM 25 MG TABLET PO SCH (11:58)
[2022-11-02] MEDS: SPIRONOLACTONE 25MG TABLET PO SCH (11:59)
[2022-11-02 12:00] VITALS: BP_SYST 104; BP_SYST 128; BP_DIAS 53; BP_DIAS 82
[2022-11-02] MEDS: HYDROCODONE/ACETAMINOPHEN 10/325MG TABLET PO PRN ×2 (14:34→21:22)
[2022-11-02 16:00] VITALS: BP 130/74
[2022-11-02 20:00] VITALS: BP 150/73
[2022-11-03] VITALS (7 sets, daily range): BP systolic 122–166; BP diastolic 53–96
[2022-11-03] MEDS: HYDROCODONE/ACETAMINOPHEN 10/325MG TABLET PO PRN ×2 (07:28→16:32)
[2022-11-03] MEDS: FUROSEMIDE 40MG TABLET PO SCH ×2 (09:00→09:45)
[2022-11-03] MEDS: SPIRONOLACTONE 25MG TABLET PO SCH (09:45)
[2022-11-03] MEDS: LIDOCAINE 5% PATCH TOP SCH (09:45)
[2022-11-03] MEDS: LOSARTAN POTASSIUM 25 MG TABLET PO SCH (09:45)
[2022-11-03] MEDS: NYSTATIN 100,000 UNITS/GM CREAM 15GM TOP SCH (09:46)
[2022-11-03] MEDS: ACETAMINOPHEN 325MG TABLET PO PRN (12:01)
== END 2022-11-04 09:01 | DRG 194 ==
LOC: ER 10:29 → EDBEDREQTM 13:35 → 3WST 15:17 → EDBEDREQ 15:23 → EDBEDREQTM 15:23 → 5WST 11-02 17:32
PROVIDERS: ADMIT Family Medicine Adult Medicine; ATTEND Family Medicine Adult Medicine
DX: I11.0 Hypertensive heart disease with heart failure (principal); G82.20 Paraplegia, unspecified; I42.9 Cardiomyopathy, unspecified; M48.04 Spinal stenosis, thoracic region; M62.82 Rhabdomyolysis; I50.23 Acute on chronic systolic (congestive) heart failure; F20.9 Schizophrenia, unspecified; E66.01 Morbid (severe) obesity due to excess calories; Z20.822 Contact with and (suspected) exposure to COVID-19; M48.061 Spinal stenosis, lumbar region without neurogenic claudication; M19.90 Unspecified osteoarthritis, unspecified site; G89.29 Other chronic pain; I25.10 Atherosclerotic heart disease of native coronary artery without angina pectoris; R26.9 Unspecified abnormalities of gait and mobility; E11.42 Type 2 diabetes mellitus with diabetic polyneuropathy; Z79.4 Long term (current) use of insulin; Z83.3 Family history of diabetes mellitus; Z82.49 Family history of ischemic heart disease and other diseases of the circulatory system; Z87.891 Personal history of nicotine dependence; Z95.0 Presence of cardiac pacemaker; Z79.84 Long term (current) use of oral hypoglycemic drugs; Z68.41 Body mass index [BMI] 40.0-44.9, adult
CPT/HCPCS: 36415; 71045; 71275; 72128; 72131; 80048; 80053; 82550; 83880; 84484; 85025; 85379; 87426; 90686; 90732; 93005; 93970; 94640; 97116; 97162; 97166; 99285; J1940

== ENCOUNTER 2023-02-28 20:16 | Emergency (ER) | payer MEDICARE, MEDICAID ==
[~2023-02-28] VITALS: Ht 165.1 cm; Wt 114.0 kg
[~2023-02-28 20:16] MED LIST changes: -BENA-8 PO; -BENAZAPRIL PO; -CLONIDINE; -ESCI20TA37 PO; +FURO40TA5 MT; -POTA8CAP20 PO; -SIMVASTATIN; +SPIR25TA PO; -ZYPREXA
[2023-02-28] MEDS ORDERED: HYDROCODONE/ACETAMINOPHEN 5/325MG TABLET PO ONE (23:15)
[2023-02-28 23:54] LABS: BASOPHILS % 0.8 % (0.0-2.0); HEMOGLOBIN. 11.9 g/dL (12.0-16.0); LYMPHOCYTES % 44.9 % (20.0-50.0); MEAN CORPUSCULAR HEMOGLOBIN 28.1 pg (28.0-32.0); MEAN CORPUSCULAR VOLUME 87.5 fL (81.0-99.0); MEAN PLATELET VOLUME 9.9 fl (7.4-10.4); MONOCYTES % 5.2 % (2.0-8.0); NEUTROPHILS % 46.1 % (40.0-76.0); PLATELET 186 x1000/uL (130-400); RED BLOOD CELL COUNT 4.23 mill/uL (4.2-5.4); RED CELL DISTRIBUTION WIDTH 15.6 % (11.6-14.6)
[2023-02-28 23:57] LABS: CHLORIDE 110 mEq/L (98-107)
[2023-03-01 11:38] VITALS: BP 151/74
== END 2023-03-01 11:50 | disposition home or self-care (01) ==
LOC: ER 20:16
DX: R07.89 Other chest pain (principal); F41.9 Anxiety disorder, unspecified; F32.9 Major depressive disorder, single episode, unspecified; E11.9 Type 2 diabetes mellitus without complications
CPT/HCPCS: 36415; 71045; 80053; 84484; 85025; 93005; 99285; Z7610

== ENCOUNTER 2024-02-28 09:42 | Inpatient (IN) | payer MEDICARE, MEDICAID ==
[~2024-02-28] VITALS: Ht 165.1 cm; Wt 113.0 kg
[~2024-02-28 09:42] MED LIST changes: -ARIP10TA56 PO; +ASPI-1406 MT; -CARI350T27 PO; +COR3 MT; -ESCI5SOL2 PO; -HYDR-4009 PO; -LORA10TA7 PO; +LOSA25TA26 PO; -METF500T PO; -RISP1 PO
[2024-02-28 10:11] LABS: BASOPHILS % 0.4 % (0.0-2.0); EOSINOPHILS % 2.9 % (0.0-5.0); HEMATOCRIT. 36.5 % (36.0-48.0); HEMOGLOBIN. 11.6 g/dL (12.0-16.0); LYMPHOCYTES % 34.2 % (20.0-50.0); MEAN CORPUSCULAR HEMOGLOBIN 28.4 pg (28.0-32.0); MEAN CORPUSCULAR HGB CONC 31.9 g/dL (31.0-37.0); MEAN CORPUSCULAR VOLUME 88.9 fL (81.0-99.0); MEAN PLATELET VOLUME 9.3 fl (7.4-10.4); MONOCYTES % 5.1 % (2.0-8.0); NEUTROPHILS % 57.4 % (40.0-76.0); PLATELET 166 x1000/uL (130-400); RED BLOOD CELL COUNT 4.11 mill/uL (4.2-5.4); RED CELL DISTRIBUTION WIDTH 16.1 % (11.6-14.6); WHITE BLOOD COUNT 7.2 x1000/uL (4.5-11.0)
[2024-02-28 10:16] LABS: CHLORIDE 112 mEq/L (98-107); SODIUM 142 mEq/L (136-145)
[2024-02-28 10:17] LABS: CALCIUM 8.7 mg/dL (8.7-10.4); CARBON DIOXIDE 24 mEq/L (21-32)
[2024-02-28 10:18] VITALS: RESP 30
[2024-02-28] MEDS: ALBUTEROL (0.083%) 2.5MG/3ML NEB HHN STA (10:18)
[2024-02-28] MEDS: IPRATROPIUM BROMIDE (0.02%) 0.5MG/2.5ML NEB HHN STA (10:18)
[2024-02-28 10:22] LABS: CREATININE 0.6 mg/dL (0.6-1.0); GLUCOSE 131 mg/dL (70-105); TROPONIN I HIGH SENSITIVITY 13 ng/L (3.0-34); UREA NITROGEN BLOOD 12 mg/dL (9-23)
[2024-02-28] MEDS: MAGNESIUM 2 G PREMIX 50 ML IV ONE (10:25)
[2024-02-28] MEDS: METHYLPREDNISOLONE SOD SUCC 125MG/2ML (ACT-O-VIAL) IV STA ×2 (10:25)
[2024-02-28] MEDS ORDERED: GUAIFENESIN 200MG/10ML SUGAR FREE UDC PO PRN (11:45)
[2024-02-28] MEDS ORDERED: ACETAMINOPHEN 325MG TABLET PO PRN (11:45)
[2024-02-28] MEDS ORDERED: IPRATROPIUM/ALBUTEROL 0.5-3(2.5)MG/3ML NEB HHN PRN (11:45)
[2024-02-28] MEDS ORDERED: METHYLPREDNISOLONE SOD SUCC 40MG/ML (ACT-O-VIAL) IV SCH (11:45)
[2024-02-28] MEDS ORDERED: AZITHROMYCIN 250 MG in DEXT 5% WATER 250 ML IV SCH (11:45)
[2024-02-28] MEDS ORDERED: ONDANSETRON HCL 4MG/2ML INJ IV PRN (11:45)
[2024-02-28] MEDS ORDERED: MAGNESIUM/ALUMINUM HYDROXIDE/SIMETHICONE 30ML UDC PO PRN (11:45)
[2024-02-28] MEDS: KETOROLAC 30MG/ML VIAL IV ONE (11:57)
[2024-02-28 12:15] LABS: BG BASE EXCESS -1.8 mmol/L (-2.0-2.0); BG CARBOXYHEMOGLOBIN 0.3 % (0.5-1.5); BG DEOXYHEMOGLOBIN 9.6 % (0.0-5.0); BG FRACTION INSPIRED OXYGEN 21; BG HCO3 ACT 22.8 mmol/L (22.0-26.0); BG METHEMOGLOBIN 0.3 % (0.0-1.5); BG OXYGEN SATURATION 90.3 % (92.0-98.5); BG OXYHEMOGLOBIN 89.8 % (94.0-97.0); BG PCO2 38.3 mmHg (35.0-45.0); BG PH 7.393 (7.350-7.450); BG PO2 59.3 mmHg (75.0-100.0); BG TOTAL HEMOGLOBIN 12.5 g/dL (12.0-18.0); BG VENT MODE ROOM AIR
[2024-02-28 14:43] VITALS: PULSE 90; RESP 18; O2SAT 100
[2024-02-28] MEDS: IPRATROPIUM/ALBUTEROL 0.5-3(2.5)MG/3ML NEB HHN SCH (14:43)
[2024-02-28] MEDS ORDERED: AZITHROMYCIN 500MG/250ML 250 ML IV SCH (16:00)
[2024-02-28] MEDS: ASPIRIN 81MG EC TABLET PO SCH (17:09)
[2024-02-28] MEDS: CARVEDILOL 3.125 MG TABLET PO SCH (17:10)
[2024-02-28] MEDS: FUROSEMIDE 40MG TABLET PO SCH (17:10)
[2024-02-28] MEDS: LOSARTAN 25 MG TABLET PO SCH (17:11)
[2024-02-28] MEDS: METHYLPREDNISOLONE SOD SUCC 40MG/ML (ACT-O-VIAL) IV SCH (17:11)
[2024-02-28] MEDS: SPIRONOLACTONE 25MG TABLET PO SCH (17:11)
[2024-02-28] MEDS: CEFTRIAXONE 1GM/50ML 50 ML IV SCH (17:16)
[2024-02-28 18:59] LABS: IRON 87 ug/dL (50-170)
[2024-02-28 19:02] LABS: TOTAL IRON BINDING CAPACITY 221 ug/dl (250-425)
[2024-02-28 19:04] LABS: FOLIC ACID (FOLATE) SERUM 14.63 ng/mL (>5.38)
[2024-02-28 19:05] LABS: FERRITIN 53 ng/mL (10-291); VITAMIN B12 SERUM 400 pg/mL (211-911)
[2024-02-28] MEDS: HYDRALAZINE 20MG/ML VIAL IV NR (19:32)
[2024-02-28] MEDS: ENOXAPARIN 40MG/0.4ML SYR SUBCUT SCH (19:32)
[2024-02-28] MEDS: CLONIDINE 0.1MG TABLET PO PRN (19:33)
[2024-02-28 19:51] VITALS: PULSE 87; RESP 20; O2SAT 99
[2024-02-28] MEDS: DOXYCYCLINE 100MG/100ML 100 ML IV SCH (19:55)
[2024-02-28 21:14] LABS: CREATINE KINASE MB FRACTION 8.7 ng/mL (0.5-3.6)
[2024-02-28 22:00] VITALS: BP 156/102; PULSE 80; RESP 21
[2024-02-28 22:32] VITALS: PULSE 84; RESP 22; O2SAT 99
[2024-02-28] MEDS: ACETAMINOPHEN 325MG TABLET PO PRN (22:38)
[2024-02-28 22:46] VITALS: BP 156/102; PULSE 83; RESP 21; TEMP 98.5
[2024-02-29] VITALS (10 sets, daily range): BP systolic 117–178; BP diastolic 82–118; PULSE 82–89; RESP 17–27; TEMP 97.3–98.2; O2SAT 94–99
[2024-02-29 00:42] LABS: CREATINE KINASE MB FRACTION 8.2 ng/mL (0.5-3.6)
[2024-02-29] MEDS ORDERED: MELATONIN 3MG TABLET PO PRN (02:15)
[2024-02-29] MEDS ORDERED: KETOROLAC 15MG/ML VIAL IV PRN (02:15)
[2024-02-29] MEDS: DOXYCYCLINE 100MG/100ML 100 ML IV SCH (06:30)
[2024-02-29 07:24] LABS: CHLORIDE 106 mEq/L (98-107); SODIUM 140 mEq/L (136-145)
[2024-02-29 07:25] LABS: CALCIUM 8.9 mg/dL (8.7-10.4); CARBON DIOXIDE 24 mEq/L (21-32)
[2024-02-29 07:30] LABS: CREATININE 0.7 mg/dL (0.6-1.0); GLUCOSE 203 mg/dL (70-105)
[2024-02-29 07:31] LABS: LDL CHOLESTEROL 83 mg/dL (5-100); TRIGLYCERIDE 79 mg/dL (0-150); UREA NITROGEN BLOOD 16 mg/dL (9-23)
[2024-02-29 07:32] LABS: ALANINE AMINOTRANSFERASE 65 IU/L (10-49); ALBUMIN 4.1 g/dL (3.2-4.8); ASPARTATE AMINOTRANSFERASE 42 IU/L (<34); CHOLESTEROL 177 mg/dL (<200); HDL CHOLESTEROL 80 mg/dL (>65)
[2024-02-29 07:33] LABS: BILIRUBIN TOTAL 0.4 mg/dL (0.1-1.0); PHOSPHORUS 2.1 mg/dL (2.5-4.9); PROTEIN TOTAL 6.8 g/dL (6.0-8.3)
[2024-02-29 07:34] LABS: THYROID STIMULATING HORMONE 0.43 uIU/mL (0.55-4.78)
[2024-02-29 08:23] LABS: BASOPHILS % 0.2 % (0.0-2.0); HEMATOCRIT. 36.3 % (36.0-48.0); HEMOGLOBIN. 11.6 g/dL (12.0-16.0); MEAN CORPUSCULAR HEMOGLOBIN 28.4 pg (28.0-32.0); MEAN CORPUSCULAR HGB CONC 31.8 g/dL (31.0-37.0); MEAN CORPUSCULAR VOLUME 89.2 fL (81.0-99.0); MEAN PLATELET VOLUME 10.4 fl (7.4-10.4); MONOCYTES % 1.5 % (2.0-8.0); NEUTROPHILS % 87.3 % (40.0-76.0); PLATELET 176 x1000/uL (130-400); RED BLOOD CELL COUNT 4.07 mill/uL (4.2-5.4); RED CELL DISTRIBUTION WIDTH 16.4 % (11.6-14.6); WHITE BLOOD COUNT 8.1 x1000/uL (4.5-11.0)
[2024-02-29] MEDS: RISPERIDONE 0.5MG TABLET PO SCH (08:31)
[2024-02-29] MEDS ORDERED: ALBU6.7H15 INH (11:32)
[2024-02-29] MEDS ORDERED: AZIT500T8 MT (11:33)
[2024-02-29] MEDS ORDERED: P20 MT (11:33)
[2024-02-29] MEDS ORDERED: BUDESONIDE 0.5MG/2ML NEB HHN SCH (12:30)
[2024-02-29] MEDS ORDERED: CEFTRIAXONE 1GM/50ML 50 ML IV SCH (17:00)
[2024-02-29] MEDS ORDERED: GUAIFENESIN 200MG 200 MG TABLET PO SCH (18:00)
== END 2024-02-29 12:00 | disposition left against medical advice (07) | DRG 194 ==
LOC: ER 09:42 → 5EST 11:31 → EDBEDREQ 11:36 → EDBEDREQTM 11:36
PROVIDERS: ADMIT Internal Medicine; ATTEND Internal Medicine
PROC: 5A09357 Assistance with Respiratory Ventilation, Less than 24 Consecutive Hours, Continuous Positive Airway Pressure (ICD-10-PCS; principal; 2024-02-28)
DX: I11.0 Hypertensive heart disease with heart failure (principal); J96.01 Acute respiratory failure with hypoxia; J18.9 Pneumonia, unspecified organism; I49.5 Sick sinus syndrome; J44.0 Chronic obstructive pulmonary disease with (acute) lower respiratory infection; J44.1 Chronic obstructive pulmonary disease with (acute) exacerbation; I50.22 Chronic systolic (congestive) heart failure; D64.9 Anemia, unspecified; E11.9 Type 2 diabetes mellitus without complications; F31.9 Bipolar disorder, unspecified; G47.33 Obstructive sleep apnea (adult) (pediatric); I16.0 Hypertensive urgency; I25.10 Atherosclerotic heart disease of native coronary artery without angina pectoris; Z53.29 Procedure and treatment not carried out because of patient's decision for other reasons; I25.2 Old myocardial infarction; Z79.899 Other long term (current) drug therapy; Z82.49 Family history of ischemic heart disease and other diseases of the circulatory system; Z87.891 Personal history of nicotine dependence; Z95.810 Presence of automatic (implantable) cardiac defibrillator
CPT/HCPCS: 36415; 36600; 71045; 80048; 80053; 80061; 82375; 82550; 82553; 82607; 82728; 82746; 82805; 83036; 83540; 83550; 83735; 83880; 84100; 84439; 84443; 84484; 85025; 85379; 93005; 93970; 94640; 94644; 94660; 99285; J0360; J0696; J1650; J1885; J2920; J2930; J3475; J3490

== ENCOUNTER 2024-03-05 19:09 | Inpatient (IN) | payer MEDICARE, MEDICAID ==
[~2024-03-05] VITALS: Ht 165.1 cm; Wt 118.5 kg
[~2024-03-05 19:09] MED LIST changes: +ALBU6.7H15 INH; +AZIT500T8 MT; +P20 MT
[2024-03-05 19:45] VITALS: PULSE 86; RESP 24; O2SAT 98
[2024-03-05] MEDS: IPRATROPIUM BROMIDE (0.02%) 0.5MG/2.5ML NEB HHN STA (19:45)
[2024-03-05] MEDS: ALBUTEROL (0.083%) 2.5MG/3ML NEB HHN STA (19:45)
[2024-03-05 20:38] LABS: BASOPHILS % 0.5 % (0.0-2.0); EOSINOPHILS % 0.4 % (0.0-5.0); HEMATOCRIT. 35.5 % (36.0-48.0); HEMOGLOBIN. 11.5 g/dL (12.0-16.0); LYMPHOCYTES % 17.6 % (20.0-50.0); MEAN CORPUSCULAR HEMOGLOBIN 28.8 pg (28.0-32.0); MEAN CORPUSCULAR HGB CONC 32.3 g/dL (31.0-37.0); MEAN CORPUSCULAR VOLUME 89.3 fL (81.0-99.0); MEAN PLATELET VOLUME 9.9 fl (7.4-10.4); MONOCYTES % 2.5 % (2.0-8.0); PLATELET 193 x1000/uL (130-400); RED BLOOD CELL COUNT 3.98 mill/uL (4.2-5.4); RED CELL DISTRIBUTION WIDTH 16.3 % (11.6-14.6); WHITE BLOOD COUNT 8.5 x1000/uL (4.5-11.0)
[2024-03-05 20:44] LABS: CHLORIDE 109 mEq/L (98-107); SODIUM 139 mEq/L (136-145)
[2024-03-05 20:45] LABS: CALCIUM 9.1 mg/dL (8.7-10.4); CARBON DIOXIDE 26 mEq/L (21-32)
[2024-03-05] MEDS: ONDANSETRON HCL 4MG/2ML INJ IV STA (20:47)
[2024-03-05] MEDS: METHYLPREDNISOLONE SOD SUCC 125MG/2ML (ACT-O-VIAL) IV STA (20:48)
[2024-03-05] MEDS: MORPHINE SULFATE 4 MG/ML INJ (FOR IV/IM USE) IV STA (20:48)
[2024-03-05 20:50] LABS: CREATININE 0.8 mg/dL (0.6-1.0); GLUCOSE 149 mg/dL (70-105); UREA NITROGEN BLOOD 13 mg/dL (9-23)
[2024-03-05 20:51] LABS: TROPONIN I HIGH SENSITIVITY 14 ng/L (3.0-34)
[2024-03-05 21:21] LABS: POTASSIUM 6.4 mEq/L (3.5-5.1)
[2024-03-05 22:39] LABS: INR 0.9; PROTHROMBIN TIME 10.4 sec (9.6-11.0)
[2024-03-05 22:41] LABS: TROPONIN I HIGH SENSITIVITY 12 ng/L (3.0-34)
[2024-03-05] MEDS: DEXTROSE 50% WATER 50ML SYRINGE IV ONE (23:03)
[2024-03-05] MEDS: CALCIUM GLUCONATE 100MG/ML 10ML VIAL IV STA (23:04)
[2024-03-05] MEDS: INSULIN REGULAR (HUMULIN R) 300UNITS/3ML VIAL IV ONE (23:05)
[2024-03-06] VITALS (9 sets, daily range): BP systolic 122–162; BP diastolic 56–94; PULSE 74–87; RESP 18–22; TEMP 97.2–97.9; O2SAT 98
[2024-03-06 02:18] LABS: CHLORIDE 109 mEq/L (98-107); SODIUM 141 mEq/L (136-145)
[2024-03-06 02:19] LABS: CARBON DIOXIDE 22 mEq/L (21-32)
[2024-03-06 02:20] LABS: CALCIUM 9.1 mg/dL (8.7-10.4)
[2024-03-06 02:24] LABS: CREATININE 0.9 mg/dL (0.6-1.0); GLUCOSE 263 mg/dL (70-105); UREA NITROGEN BLOOD 14 mg/dL (9-23)
[2024-03-06] MEDS ORDERED: ACETAMINOPHEN 325MG TABLET PO PRN (08:00)
[2024-03-06] MEDS ORDERED: CLONIDINE 0.1MG TABLET PO PRN (08:00)
[2024-03-06] MEDS ORDERED: ONDANSETRON HCL 4MG/2ML INJ IV PRN (08:00)
[2024-03-06] MEDS ORDERED: MAGNESIUM/ALUMINUM HYDROXIDE/SIMETHICONE 30ML UDC PO PRN (08:00)
[2024-03-06] MEDS ORDERED: IPRATROPIUM/ALBUTEROL 0.5-3(2.5)MG/3ML NEB HHN PRN (08:00)
[2024-03-06] MEDS: ASPIRIN 81MG EC TABLET PO SCH (08:31)
[2024-03-06] MEDS: METHYLPREDNISOLONE SOD SUCC 40MG/ML (ACT-O-VIAL) IV SCH (08:31)
[2024-03-06] MEDS: LOSARTAN 25 MG TABLET PO SCH (08:31)
[2024-03-06] MEDS: FUROSEMIDE 40MG TABLET PO SCH (08:31)
[2024-03-06 08:32] LABS: CHLORIDE 107 mEq/L (98-107); POTASSIUM 5.7 mEq/L (3.5-5.1); SODIUM 139 mEq/L (136-145)
[2024-03-06 08:33] LABS: CARBON DIOXIDE 26 mEq/L (21-32)
[2024-03-06 08:34] LABS: CALCIUM 9.8 mg/dL (8.7-10.4)
[2024-03-06 08:38] LABS: CREATININE 0.9 mg/dL (0.6-1.0); GLUCOSE 252 mg/dL (70-105)
[2024-03-06 08:39] LABS: UREA NITROGEN BLOOD 16 mg/dL (9-23)
[2024-03-06 08:40] LABS: ALANINE AMINOTRANSFERASE 127 IU/L (10-49); ALBUMIN 4.2 g/dL (3.2-4.8); ASPARTATE AMINOTRANSFERASE 39 IU/L (<34)
[2024-03-06 08:41] LABS: BILIRUBIN TOTAL 0.3 mg/dL (0.1-1.0); PHOSPHORUS 3.8 mg/dL (2.5-4.9); PROTEIN TOTAL 6.7 g/dL (6.0-8.3)
[2024-03-06] MEDS: IPRATROPIUM/ALBUTEROL 0.5-3(2.5)MG/3ML NEB HHN SCH (10:21)
[2024-03-06 15:55] LABS: CREATINE KINASE MB FRACTION 6.7 ng/mL (0.5-3.6); TROPONIN I HIGH SENSITIVITY 8 ng/L (3.0-34)
[2024-03-06 15:57] LABS: CREATINE KINASE 161 IU/L (34-145)
[2024-03-06] MEDS ORDERED: DEXTROSE 50% WATER 50ML SYRINGE IV PRN (17:15)
[2024-03-06] MEDS: BLOOD SUGAR DIAGNOSTIC STRIP TEST SCH (20:50)
[2024-03-06] MEDS: INSULIN LISPRO 100 UNITS/ML SUBCUT SCH (20:58)
[2024-03-07] VITALS (12 sets, daily range): BP systolic 110–166; BP diastolic 57–83; PULSE 69–99; RESP 16–22; TEMP 97–98.1; O2SAT 95–98
[2024-03-07 00:13] LABS: CREATINE KINASE MB FRACTION 7.4 ng/mL (0.5-3.6); TROPONIN I HIGH SENSITIVITY 10 ng/L (3.0-34)
[2024-03-07 00:14] LABS: CREATINE KINASE 165 IU/L (34-145)
[2024-03-07 01:16] LABS: CLARITY URINE CLEAR (CLEAR); COLOR URINE YELLOW (YELLOW); GLUCOSE URINE NEGATIVE (NEGATIVE); KETONES URINE TRACE (NEGATIVE); LEUKOCYTE ESTERASE URINE NEGATIVE (NEGATIVE); NITRITE URINE NEGATIVE (NEGATIVE); OCCULT BLOOD URINE NEGATIVE (NEGATIVE); PROTEIN URINE NEGATIVE (NEGATIVE); SPECIFIC GRAVITY URINE 1.025 (1.005-1.030); UROBILINOGEN URINE 0.2 E.U./dL (0.2-1.0)
[2024-03-07 01:26] LABS: *AMPHETAMINES SCREEN URINE NEGATIVE (NEGATIVE)
[2024-03-07 01:27] LABS: *BARBITURATES SCREEN URINE NEGATIVE (NEGATIVE); *BENZODIAZEPINES SCREEN URINE NEGATIVE (NEGATIVE); *COCAINE SCREEN URINE NEGATIVE (NEGATIVE); CANNABINOID URINE SCREEN NEGATIVE (NEGATIVE); ECSTASY MDMA SCREEN URINE NEGATIVE (NEGATIVE); METHADONE URINE SCREEN NEGATIVE (NEGATIVE); OPIATES URINE SCREEN PRESUMPTIVE POSITIVE (NEGATIVE); PHENCYCLIDINE URINE SCREEN NEGATIVE (NEGATIVE)
[2024-03-07 04:45] LABS: BASOPHILS % 0.3 % (0.0-2.0); HEMATOCRIT. 36.8 % (36.0-48.0); HEMOGLOBIN. 11.5 g/dL (12.0-16.0); LYMPHOCYTES % 8.4 % (20.0-50.0); MEAN CORPUSCULAR HEMOGLOBIN 28.2 pg (28.0-32.0); MEAN CORPUSCULAR HGB CONC 31.2 g/dL (31.0-37.0); MEAN CORPUSCULAR VOLUME 90.2 fL (81.0-99.0); MEAN PLATELET VOLUME 10.5 fl (7.4-10.4); MONOCYTES % 4.1 % (2.0-8.0); NEUTROPHILS % 87.2 % (40.0-76.0); PLATELET 171 x1000/uL (130-400); RED BLOOD CELL COUNT 4.08 mill/uL (4.2-5.4); RED CELL DISTRIBUTION WIDTH 16.7 % (11.6-14.6); WHITE BLOOD COUNT 11.5 x1000/uL (4.5-11.0)
[2024-03-07 10:25] LABS: CHLORIDE 101 mEq/L (98-107); POTASSIUM 4.4 mEq/L (3.5-5.1)
[2024-03-07 10:26] LABS: CARBON DIOXIDE 27 mEq/L (21-32); SODIUM 138 mEq/L (136-145)
[2024-03-07 10:31] LABS: CREATININE 0.9 mg/dL (0.6-1.0); GLUCOSE 310 mg/dL (70-105); UREA NITROGEN BLOOD 19 mg/dL (9-23)
[2024-03-07] MEDS: ACETAMINOPHEN 325MG TABLET PO PRN (17:32)
[2024-03-07] MEDS: CEFTRIAXONE 1GM/50ML 50 ML IV SCH (21:06)
[2024-03-08] VITALS (9 sets, daily range): BP systolic 150–182; BP diastolic 79–97; PULSE 66–81; RESP 16–19; TEMP 97.2–97.9; O2SAT 96–98
[2024-03-08] MEDS ORDERED: TIOT18CA3 INH (11:58)
[2024-03-08] MEDS ORDERED: P20 MT (11:58)
[2024-03-08] MEDS ORDERED: ALBU6.7H15 INH (11:58)
== END 2024-03-08 14:45 | disposition home health service (06) | DRG 140 ==
LOC: ER 19:09 → 7WST 21:32
PROVIDERS: ADMIT Internal Medicine; ATTEND Internal Medicine
DX: J44.1 Chronic obstructive pulmonary disease with (acute) exacerbation (principal); J96.01 Acute respiratory failure with hypoxia; I50.20 Unspecified systolic (congestive) heart failure; I49.5 Sick sinus syndrome; I11.0 Hypertensive heart disease with heart failure; D64.9 Anemia, unspecified; E11.9 Type 2 diabetes mellitus without complications; I25.10 Atherosclerotic heart disease of native coronary artery without angina pectoris; F17.210 Nicotine dependence, cigarettes, uncomplicated; G89.29 Other chronic pain; F31.9 Bipolar disorder, unspecified; G47.33 Obstructive sleep apnea (adult) (pediatric); Z95.810 Presence of automatic (implantable) cardiac defibrillator; Z79.899 Other long term (current) drug therapy; Z79.82 Long term (current) use of aspirin
CPT/HCPCS: 36415; 71045; 80048; 80053; 80305; 81003; 82550; 82553; 82962; 83735; 83880; 84100; 84145; 84484; 85025; 93005; 94640; 94644; 97162; 97535; 99285; C1893; J0610; J0696; J1815; J2270; J2405; J2919; J2920

== ENCOUNTER 2024-03-21 09:13 | Emergency (ER) | payer MEDICARE, MEDICAID ==
[~2024-03-21] VITALS: Ht 167.6 cm; Wt 88.0 kg
[~2024-03-21 09:13] MED LIST changes: -AZIT500T8 MT; -SPIR25TA PO; +TIOT18CA3 INH
[2024-03-21 09:20] VITALS: O2SAT 96
[2024-03-21] MEDS: LIDOCAINE 5% PATCH TOP STA (10:25)
[2024-03-21] MEDS: HYDROCODONE/ACETAMINOPHEN 5/325MG TABLET PO ONE (11:31)
[2024-03-21] MEDS: IBUPROFEN 400MG TABLET PO ONE (11:31)
[2024-03-21] MEDS ORDERED: LIDO1ADH23 TP (11:57)
[2024-03-21] MEDS ORDERED: TOPUD PO (11:57)
[2024-03-21] MEDS ORDERED: IBUP-2028 MT (11:57)
[2024-03-21 13:16] VITALS: BP 136/88; PULSE 72; RESP 16; TEMP 97.6
== END 2024-03-21 13:18 | disposition home or self-care (01) ==
LOC: ER 09:13
DX: M17.12 Unilateral primary osteoarthritis, left knee (principal); I11.0 Hypertensive heart disease with heart failure; I50.9 Heart failure, unspecified; J44.9 Chronic obstructive pulmonary disease, unspecified; E11.9 Type 2 diabetes mellitus without complications; I25.2 Old myocardial infarction; Z79.899 Other long term (current) drug therapy; W18.39XA Other fall on same level, initial encounter; Y93.89 Activity, other specified; Y92.89 Other specified places as the place of occurrence of the external cause; Y99.8 Other external cause status
CPT/HCPCS: 73502; 73552; 73560; 99284; Z7610

== ENCOUNTER 2024-12-12 03:49 | Emergency (ER) | payer MEDICARE, MEDICAID ==
[~2024-12-12] VITALS: Ht 170.2 cm; Wt 100.0 kg
[~2024-12-12 03:49] MED LIST changes: +IBUP-2028 MT; +LIDO1ADH23 TP; +P50 MT; +TOPUD PO
[2024-12-12 03:51] VITALS: TEMP 36.6
[2024-12-12 04:58] LABS: BASOPHILS % 1.2 % (0.0-2.0); HEMATOCRIT. 36.2 % (36.0-48.0); HEMOGLOBIN. 11.4 g/dL (12.0-16.0); LYMPHOCYTES % 40.3 % (20.0-50.0); MEAN CORPUSCULAR HEMOGLOBIN 28.1 pg (28.0-32.0); MEAN CORPUSCULAR HGB CONC 31.5 g/dL (31.0-37.0); MEAN CORPUSCULAR VOLUME 89.2 fL (81.0-99.0); MEAN PLATELET VOLUME 9.4 fl (7.4-10.4); MONOCYTES % 5.4 % (2.0-8.0); NEUTROPHILS % 50.1 % (40.0-76.0); PLATELET 182 x1000/uL (130-400); RED BLOOD CELL COUNT 4.05 mill/uL (4.2-5.4); RED CELL DISTRIBUTION WIDTH 16.3 % (11.6-14.6)
[2024-12-12 05:12] LABS: CHLORIDE 107 mEq/L (98-107); POTASSIUM 4.2 mEq/L (3.5-5.1); SODIUM 143 mEq/L (136-145)
[2024-12-12 05:13] LABS: CARBON DIOXIDE 27 mEq/L (21-32)
[2024-12-12 05:14] LABS: CALCIUM 8.5 mg/dL (8.7-10.4)
[2024-12-12 05:18] LABS: CREATININE 0.6 mg/dL (0.6-1.0); GLUCOSE 126 mg/dL (70-105); UREA NITROGEN BLOOD 12 mg/dL (9-23)
[2024-12-12 05:19] LABS: TROPONIN I HIGH SENSITIVITY 13 ng/L (3.0-34)
[2024-12-12 05:32] LABS: PARTIAL THROMBOPLASTIN TIME 25.4 sec (23.4-31.0); PROTHROMBIN TIME 10.4 sec (9.6-11.0)
[2024-12-12 05:33] LABS: ETHANOL BLOOD < 10 mg/dL (<10)
[2024-12-12] MEDS: METHYLPREDNISOLONE SOD SUCC 125MG/2ML (ACT-O-VIAL) IV STA (05:43)
[2024-12-12 05:55] VITALS: PULSE 83; RESP 20; O2SAT 97
[2024-12-12] MEDS: ALBUTEROL (0.083%) 2.5MG/3ML NEB HHN SCH (05:59)
[2024-12-12] MEDS: IPRATROPIUM BROMIDE (0.02%) 0.5MG/2.5ML NEB HHN STA (05:59)
[2024-12-12 06:32] LABS: INFLUENZA TYPE A Presumptive Negative (Pres. Neg.)
[2024-12-12 06:33] LABS: INFLUENZA TYPE B Presumptive Negative (Pres. Neg.)
[2024-12-12] MEDS: FUROSEMIDE 40MG/4ML VIAL IVP ONE (06:58)
[2024-12-12 07:02] VITALS: BP 156/85; PULSE 95; RESP 13; O2SAT 95
== END 2024-12-12 07:25 | disposition left against medical advice (07) ==
LOC: ER 03:49
DX: I11.0 Hypertensive heart disease with heart failure (principal); I50.9 Heart failure, unspecified; J44.1 Chronic obstructive pulmonary disease with (acute) exacerbation; F10.90 Alcohol use, unspecified, uncomplicated; E11.9 Type 2 diabetes mellitus without complications; Z79.82 Long term (current) use of aspirin; Z79.899 Other long term (current) drug therapy; Z95.0 Presence of cardiac pacemaker; Z20.822 Contact with and (suspected) exposure to COVID-19; Y90.9 Presence of alcohol in blood, level not specified
CPT/HCPCS: 80048; 80320; 83880; 85025; 85610; 85730; 84484; 87804 ×2; 36415; 71045; 94640; 93005; 96374; 99291; 87426; J2919; A4606; J1940; G0480

== ENCOUNTER 2025-05-12 18:59 | Inpatient (IN) | payer MEDICARE, MEDICAID ==
[~2025-05-12] VITALS: Ht 165.1 cm; Wt 105.7 kg
[2025-05-12] MEDS ORDERED: HYDROMORPHONE HCL/PF 2MG/ML INJ IV ONE ×2 (19:30→22:00)
[2025-05-12 19:40] VITALS: PULSE 82; RESP 20; O2SAT 98
[2025-05-12] MEDS: IPRATROPIUM BROMIDE (0.02%) 0.5MG/2.5ML NEB HHN ONE (19:40)
[2025-05-12] MEDS: ALBUTEROL (0.083%) 2.5MG/3ML NEB HHN ONE ×2 (19:40→22:00)
[2025-05-12 19:52] LABS: BASOPHILS % 0.5 % (0.0-2.0); EOSINOPHILS % 1.7 % (0.0-5.0); HEMATOCRIT. 38.3 % (36.0-48.0); HEMOGLOBIN. 12.3 g/dL (12.0-16.0); LYMPHOCYTES % 34.7 % (20.0-50.0); MEAN PLATELET VOLUME 9.7 fl (7.4-10.4); MONOCYTES % 5.8 % (2.0-8.0); NEUTROPHILS % 57.3 % (40.0-76.0); PLATELET 146 x1000/uL (130-400); RED BLOOD CELL COUNT 4.35 mill/uL (4.2-5.4); RED CELL DISTRIBUTION WIDTH 16.6 % (11.6-14.6)
[2025-05-12 20:03] LABS: INR 1.0
[2025-05-12 20:05] LABS: CREATININE 0.7 mg/dL (0.6-1.0)
[2025-05-12 20:06] LABS: TROPONIN I HIGH SENSITIVITY 18 ng/L (3.0-34); UREA NITROGEN BLOOD 15 mg/dL (9-23)
[2025-05-12 20:07] LABS: ASPARTATE AMINOTRANSFERASE 46 IU/L (<34); BILIRUBIN DIRECT 0.2 mg/dL (<=3.0); BILIRUBIN TOTAL 0.7 mg/dL (0.1-1.0)
[2025-05-12 20:08] LABS: PROTEIN TOTAL 6.6 g/dL (6.0-8.3)
[2025-05-12] MEDS: ASPIRIN 81MG TABLET PO ONE (20:13)
[2025-05-12] MEDS: KETOROLAC 15MG/ML VIAL IV ONE (20:15)
[2025-05-12] MEDS: METHYLPREDNISOLONE SOD SUCC 125MG/2ML (ACT-O-VIAL) IV ONE (20:15)
[2025-05-12] MEDS: HYDROMORPHONE HCL/PF 1MG/ML INJ IV NR ×2 (20:23→22:25)
[2025-05-12] MEDS ORDERED: ONDANSETRON HCL 4MG/2ML INJ IV PRN (23:30)
[2025-05-12] MEDS ORDERED: ACETAMINOPHEN 325MG TABLET PO PRN ×2 (23:30)
[2025-05-12] MEDS ORDERED: DOCUSATE SODIUM 100MG CAPSULE PO PRN (23:30)
[2025-05-12] MEDS ORDERED: GUAIFENESIN 200MG/10ML SUGAR FREE UDC PO PRN (23:30)
[2025-05-12] MEDS ORDERED: MAGNESIUM/ALUMINUM HYDROXIDE/SIMETHICONE 30ML UDC PO PRN (23:30)
[2025-05-13] VITALS (8 sets, daily range): BP systolic 122–169; BP diastolic 65–95; PULSE 63–86; RESP 18–20; TEMP 36.2–37.1408; O2SAT 91–98
[2025-05-13] MEDS ORDERED: RISP-29 PO (03:45)
[2025-05-13] MEDS ORDERED: PANT40TA51 PO (03:45)
[2025-05-13] MEDS ORDERED: QUET25TA36 PO (03:45)
[2025-05-13] MEDS ORDERED: FURO20TA4 PO (03:45)
[2025-05-13] MEDS: IPRATROPIUM/ALBUTEROL 0.5-3(2.5)MG/3ML NEB HHN PRN (05:40)
[2025-05-13 06:27] LABS: HEMATOCRIT. 37.8 % (36.0-48.0); HEMOGLOBIN. 11.9 g/dL (12.0-16.0); MEAN PLATELET VOLUME 10.4 fl (7.4-10.4); PLATELET 153 x1000/uL (130-400); RED BLOOD CELL COUNT 4.24 mill/uL (4.2-5.4); RED CELL DISTRIBUTION WIDTH 16.5 % (11.6-14.6)
[2025-05-13 06:55] LABS: CREATINE KINASE MB FRACTION 5.8 ng/mL (0.5-3.6); TRIGLYCERIDE 47.0 mg/dL (0-150); TROPONIN I HIGH SENSITIVITY 11.0 ng/L (3.0-34)
[2025-05-13 06:56] LABS: LDL CHOLESTEROL 66.0 mg/dL (5-100)
[2025-05-13] MEDS: METHYLPREDNISOLONE SOD SUCC 40MG/ML (ACT-O-VIAL) IV SCH (06:56)
[2025-05-13] MEDS: ENOXAPARIN 30MG/0.3ML SYR SUBCUT SCH (08:16)
[2025-05-13] MEDS: CLONIDINE 0.1MG TABLET PO PRN (08:16)
[2025-05-13] MEDS ORDERED: NALOXONE HCL 0.4MG/ML VIAL IV PRN (08:30)
[2025-05-13] MEDS: AMLODIPINE 5MG TABLET PO SCH (09:26)
[2025-05-13] MEDS: POTASSIUM CHLORIDE 20MEQ TABLET SR PO SCH (09:26)
[2025-05-13] MEDS: FUROSEMIDE 100MG/10ML VIAL IVP SCH (09:26)
[2025-05-13 13:26] LABS: CLARITY URINE CLEAR (CLEAR); COLOR URINE YELLOW (YELLOW); GLUCOSE URINE NEGATIVE (NEGATIVE); KETONES URINE NEGATIVE (NEGATIVE); LEUKOCYTE ESTERASE URINE NEGATIVE (NEGATIVE); NITRITE URINE NEGATIVE (NEGATIVE); OCCULT BLOOD URINE TRACE (NEGATIVE); PH URINE 5.0 (4.5-8.0); PROTEIN URINE NEGATIVE (NEGATIVE); SPECIFIC GRAVITY URINE 1.007 (1.005-1.030); UROBILINOGEN URINE 0.2 E.U./dL (0.2-1.0)
[2025-05-13 13:49] LABS: BACTERIA URINE NONE SEEN; RBC URINE 0-2 /hpf (0-2); SQUAMOUS EPITHELIAL CELL URINE 1+ /lpf (RARE/1+); WBC URINE 0-2 /hpf (0-2); YEAST URINE NONE SEEN
[2025-05-13 13:55] LABS: *AMPHETAMINES SCREEN URINE NEGATIVE (NEGATIVE); *BARBITURATES SCREEN URINE NEGATIVE (NEGATIVE); *BENZODIAZEPINES SCREEN URINE NEGATIVE (NEGATIVE)
[2025-05-13 13:56] LABS: *COCAINE SCREEN URINE NEGATIVE (NEGATIVE); CANNABINOID URINE SCREEN NEGATIVE (NEGATIVE); ECSTASY MDMA SCREEN URINE NEGATIVE (NEGATIVE); METHADONE URINE SCREEN NEGATIVE (NEGATIVE); OPIATES URINE SCREEN NEGATIVE (NEGATIVE); PHENCYCLIDINE URINE SCREEN NEGATIVE (NEGATIVE)
[2025-05-13] MEDS: ASPIRIN 81MG EC TABLET PO SCH (15:04)
[2025-05-13 15:30] LABS: *AMPHETAMINES SCREEN URINE NEGATIVE (NEGATIVE); *BARBITURATES SCREEN URINE NEGATIVE (NEGATIVE); *BENZODIAZEPINES SCREEN URINE NEGATIVE (NEGATIVE); *COCAINE SCREEN URINE NEGATIVE (NEGATIVE); CANNABINOID URINE SCREEN NEGATIVE (NEGATIVE); ECSTASY MDMA SCREEN URINE NEGATIVE (NEGATIVE); METHADONE URINE SCREEN NEGATIVE (NEGATIVE); OPIATES URINE SCREEN PRESUMPTIVE POSITIVE (NEGATIVE); PHENCYCLIDINE URINE SCREEN NEGATIVE (NEGATIVE)
[2025-05-13 16:08] LABS: LYMPHOCYTES % MANUAL 7.0 % (20.0-60.0); MONOCYTES % MANUAL 1.0 % (2.0-8.0); NEUTROPHILS % MANUAL 92.0 % (45.0-75.0); PLATELET ESTIMATE NORMAL
[2025-05-13 17:36] LABS: CREATINE KINASE MB FRACTION 6.5 ng/mL (0.5-3.6); TROPONIN I HIGH SENSITIVITY 11.0 ng/L (3.0-34)
[2025-05-13] MEDS: HYDROCODONE/ACETAMINOPHEN 5/325MG TABLET PO PRN (22:14)
[2025-05-14] VITALS (9 sets, daily range): BP systolic 105–147; BP diastolic 49–81; PULSE 67–79; RESP 12–22; TEMP 36.3–36.9; O2SAT 93–97
[2025-05-14 06:15] LABS: TROPONIN I HIGH SENSITIVITY 11 ng/L (3.0-34)
[2025-05-14 06:17] LABS: CREATININE 0.8 mg/dL (0.6-1.0)
[2025-05-14 06:18] LABS: UREA NITROGEN BLOOD 21 mg/dL (9-23)
[2025-05-14 06:40] LABS: BASOPHILS % 0.0 % (0.0-2.0); EOSINOPHILS % 0.0 % (0.0-5.0); HEMATOCRIT. 39.2 % (36.0-48.0); HEMOGLOBIN. 12.8 g/dL (12.0-16.0); LYMPHOCYTES % 13.2 % (20.0-50.0); MEAN PLATELET VOLUME 10.5 fl (7.4-10.4); MONOCYTES % 3.8 % (2.0-8.0); NEUTROPHILS % 83.0 % (40.0-76.0); PLATELET 158 x1000/uL (130-400); RED BLOOD CELL COUNT 4.46 mill/uL (4.2-5.4); RED CELL DISTRIBUTION WIDTH 16.7 % (11.6-14.6)
[2025-05-14] MEDS: LOSARTAN 25 MG TABLET PO SCH (08:48)
[2025-05-14] MEDS: QUETIAPINE FUMARATE 25MG TABLET PO SCH (08:49)
[2025-05-14] MEDS: PANTOPRAZOLE 40MG DR TABLET PO SCH (08:50)
[2025-05-14] MEDS: IPRATROPIUM/ALBUTEROL 0.5-3(2.5)MG/3ML NEB HHN SCH (09:44)
[2025-05-14] MEDS: BUDESONIDE 0.5MG/2ML NEB HHN SCH (09:45)
[2025-05-14] MEDS ORDERED: P20 MT (10:28)
[2025-05-14] MEDS: LORAZEPAM 0.5MG TABLET PO PRN (23:02)
[2025-05-14] MEDS: ZOLPIDEM TARTRATE 5MG TABLET PO PRN (23:06)
[2025-05-14] MEDS: FUROSEMIDE 20MG TABLET PO SCH (23:06)
[2025-05-15 02:30] VITALS: PULSE 72; RESP 18; O2SAT 96
[2025-05-15 03:53] VITALS: BP 128/62; PULSE 75; RESP 18; TEMP 36.4; O2SAT 95
[2025-05-15 08:00] VITALS: BP 127/61; PULSE 127; RESP 18; TEMP 36.7; O2SAT 98
[2025-05-15 08:45] VITALS: PULSE 75; RESP 16
[2025-05-15 12:00] VITALS: BP 136/92; PULSE 61; RESP 18; TEMP 37; O2SAT 98
[2025-05-15 12:45] VITALS: BP 136/71; PULSE 61; RESP 18; TEMP 97.3
[2025-05-15] MEDS ORDERED: CARVEDILOL 3.125 MG TABLET PO NR (13:00)
[2025-05-15] MEDS ORDERED: CARVEDILOL 3.125 MG TABLET PO SCH (21:00)
== END 2025-05-15 15:44 | DRG 291 ==
LOC: ER 18:59 → 7WST 22:26 → EDBEDREQ 22:39 → EDBEDREQTM 22:39 → ENRESERV 05-13 00:22
PROVIDERS: ADMIT Internal Medicine; ATTEND Internal Medicine
DX: I11.0 Hypertensive heart disease with heart failure (principal); I50.23 Acute on chronic systolic (congestive) heart failure; J96.21 Acute and chronic respiratory failure with hypoxia; J44.1 Chronic obstructive pulmonary disease with (acute) exacerbation; I42.9 Cardiomyopathy, unspecified; Z20.822 Contact with and (suspected) exposure to COVID-19; G47.33 Obstructive sleep apnea (adult) (pediatric); I25.10 Atherosclerotic heart disease of native coronary artery without angina pectoris; E66.9 Obesity, unspecified; E11.9 Type 2 diabetes mellitus without complications; F31.9 Bipolar disorder, unspecified; Z99.81 Dependence on supplemental oxygen; Z95.0 Presence of cardiac pacemaker; Z68.39 Body mass index [BMI] 39.0-39.9, adult; Z87.891 Personal history of nicotine dependence; Z79.899 Other long term (current) drug therapy; Z79.82 Long term (current) use of aspirin
CPT/HCPCS: 36415; 71045; 80048; 80061; 80076; 80305; 81003; 82550; 82553; 83735; 83880; 84443; 84484; 85025; 87426; 93005; 93306; 93970; 94070; 94640; 94664; 97162; 99291; A4606; J1171; J1650; J1885; J1938; J2919; J7626

== ENCOUNTER 2025-06-07 04:49 | Inpatient (IN) | payer MEDICARE, MEDICAID ==
[~2025-06-07] VITALS: Ht 167.6 cm; Wt 105.2 kg
[2025-06-07] VITALS (8 sets, daily range): BP systolic 162–174; BP diastolic 87–111; PULSE 60–95; RESP 16–20; TEMP 36.4–36.9184; O2SAT 91–100
[~2025-06-07 04:49] MED LIST changes: -IBUP-2028 MT; -P50 MT; +PANT40TA51 PO; +QUET25TA36 PO; +RISP-29 PO
[2025-06-07] MEDS: MORPHINE SULFATE 4 MG/ML INJ (FOR IV/IM USE) IV ONE (05:53)
[2025-06-07] MEDS: METHYLPREDNISOLONE SOD SUCC 125MG/2ML (ACT-O-VIAL) IV ONE (05:53)
[2025-06-07] MEDS: ALBUTEROL (0.083%) 2.5MG/3ML NEB HHN SCH (06:13)
[2025-06-07] MEDS: IPRATROPIUM BROMIDE (0.02%) 0.5MG/2.5ML NEB HHN SCH (06:13)
[2025-06-07 06:19] LABS: BASOPHILS % 1.3 % (0.0-2.0); EOSINOPHILS % 2.6 % (0.0-5.0); HEMATOCRIT. 38.1 % (36.0-48.0); HEMOGLOBIN. 12.0 g/dL (12.0-16.0); LYMPHOCYTES % 42.3 % (20.0-50.0); MEAN PLATELET VOLUME 10.4 fl (7.4-10.4); MONOCYTES % 5.1 % (2.0-8.0); NEUTROPHILS % 48.7 % (40.0-76.0); PLATELET 174 x1000/uL (130-400); RED BLOOD CELL COUNT 4.30 mill/uL (4.2-5.4); RED CELL DISTRIBUTION WIDTH 16.4 % (11.6-14.6)
[2025-06-07 06:23] LABS: CREATININE 0.7 mg/dL (0.6-1.0); UREA NITROGEN BLOOD 12 mg/dL (9-23)
[2025-06-07 06:24] LABS: TROPONIN I HIGH SENSITIVITY 14 ng/L (3.0-34)
[2025-06-07] MEDS ORDERED: NALOXONE HCL 0.4MG/ML VIAL IV PRN (08:45)
[2025-06-07] MEDS ORDERED: ONDANSETRON HCL 4MG/2ML INJ IV PRN (08:45)
[2025-06-07] MEDS: LOSARTAN 50 MG TABLET PO SCH ×2 (09:25→21:11)
[2025-06-07] MEDS: SODIUM ZIRCONIUM CYCLOSILICATE 10GM/PACKET PO SCH (09:25)
[2025-06-07] MEDS: FUROSEMIDE 40MG/4ML VIAL IVP SCH (09:25)
[2025-06-07] MEDS ORDERED: FURO20TA4 PO (15:02)
[2025-06-07] MEDS: IPRATROPIUM/ALBUTEROL 0.5-3(2.5)MG/3ML NEB HHN SCH (16:01)
[2025-06-07] MEDS: FUROSEMIDE 100MG/10ML VIAL IVP SCH (17:19)
[2025-06-07] MEDS: HYDROCODONE/ACETAMINOPHEN 5/325MG TABLET PO PRN (17:24)
[2025-06-07] MEDS: CLONIDINE 0.2MG TABLET PO PRN (19:17)
[2025-06-08] VITALS (9 sets, daily range): BP systolic 111–129; BP diastolic 52–78; PULSE 68–83; RESP 16–22; TEMP 36.3–36.8; O2SAT 94–100
[2025-06-08 07:16] LABS: BASOPHILS % 0.3 % (0.0-2.0); EOSINOPHILS % 0.2 % (0.0-5.0); HEMATOCRIT. 37.3 % (36.0-48.0); HEMOGLOBIN. 11.8 g/dL (12.0-16.0); LYMPHOCYTES % 21.9 % (20.0-50.0); MEAN PLATELET VOLUME 10.2 fl (7.4-10.4); MONOCYTES % 6.6 % (2.0-8.0); NEUTROPHILS % 71.0 % (40.0-76.0); PLATELET 178 x1000/uL (130-400); RED BLOOD CELL COUNT 4.16 mill/uL (4.2-5.4); RED CELL DISTRIBUTION WIDTH 16.1 % (11.6-14.6)
[2025-06-08 07:51] LABS: CREATININE 0.7 mg/dL (0.6-1.0); UREA NITROGEN BLOOD 16 mg/dL (9-23)
[2025-06-08 07:54] LABS: TROPONIN I HIGH SENSITIVITY 17 ng/L (3.0-34)
[2025-06-08] MEDS ORDERED: CLONIDINE 0.1MG TABLET PO PRN (08:15)
[2025-06-08] MEDS: FUROSEMIDE 40MG TABLET PO SCH (09:17)
[2025-06-08] MEDS: RISPERIDONE 1MG TABLET PO SCH (21:08)
[2025-06-09] VITALS: BP 110/69; PULSE 58; RESP 17; TEMP 36.5; O2SAT 97
[2025-06-09 01:03] VITALS: PULSE 78; RESP 20
[2025-06-09 04:00] VITALS: BP 160/77; PULSE 78; RESP 18; TEMP 36.4; O2SAT 97
[2025-06-09 06:00] VITALS: BP 147/115; RESP 17
[2025-06-09 06:58] LABS: BASOPHILS % 0.4 % (0.0-2.0); EOSINOPHILS % 4.2 % (0.0-5.0); HEMATOCRIT. 40.8 % (36.0-48.0); HEMOGLOBIN. 13.1 g/dL (12.0-16.0); LYMPHOCYTES % 41.4 % (20.0-50.0); MEAN PLATELET VOLUME 9.9 fl (7.4-10.4); MONOCYTES % 7.0 % (2.0-8.0); NEUTROPHILS % 47.0 % (40.0-76.0); PLATELET 188 x1000/uL (130-400); RED BLOOD CELL COUNT 4.64 mill/uL (4.2-5.4); RED CELL DISTRIBUTION WIDTH 16.3 % (11.6-14.6)
[2025-06-09] MEDS ORDERED: IOHEXOL-350 100 ML BOTTLE ONE (07:04)
[2025-06-09 07:12] LABS: CREATININE 1.0 mg/dL (0.6-1.0); UREA NITROGEN BLOOD 18 mg/dL (9-23)
[2025-06-09 08:00] VITALS: BP 127/68; PULSE 81; RESP 18; TEMP 36.2; O2SAT 95
[2025-06-09 08:16] VITALS: PULSE 87; RESP 18; O2SAT 90
[2025-06-09] MEDS: ASPIRIN 81MG TABLET PO SCH (08:59)
[2025-06-09] MEDS ORDERED: ENOXAPARIN 30MG/0.3ML SYR SUBCUT SCH (10:00)
[2025-06-09 11:25] LABS: TRIGLYCERIDE 149.0 mg/dL (0-150)
[2025-06-09 11:26] LABS: LDL CHOLESTEROL 88.0 mg/dL (5-100)
[2025-06-09] MEDS ORDERED: ATORVASTATIN CALCIUM 40MG TABLET PO SCH ×2 (21:00)
[2025-06-10] MEDS ORDERED: CLOPIDOGREL 75MG TABLET PO SCH (09:00)
== END 2025-06-09 11:11 | disposition left against medical advice (07) | DRG 291 ==
LOC: ER 05:16 → 5WST 06:58 → EDBEDREQTM 07:03 → EDBEDREQ 07:03 → ENRESERV 07:54
PROVIDERS: ADMIT Internal Medicine; ATTEND Internal Medicine
DX: I11.0 Hypertensive heart disease with heart failure (principal); I50.23 Acute on chronic systolic (congestive) heart failure; J44.1 Chronic obstructive pulmonary disease with (acute) exacerbation; E87.5 Hyperkalemia; F32.A Depression, unspecified; E11.9 Type 2 diabetes mellitus without complications; E78.5 Hyperlipidemia, unspecified; M06.9 Rheumatoid arthritis, unspecified; F20.9 Schizophrenia, unspecified; Z53.29 Procedure and treatment not carried out because of patient's decision for other reasons; I42.0 Dilated cardiomyopathy; Z95.810 Presence of automatic (implantable) cardiac defibrillator; Z86.73 Personal history of transient ischemic attack (TIA), and cerebral infarction without residual deficits; Z79.899 Other long term (current) drug therapy; I25.2 Old myocardial infarction; Z87.891 Personal history of nicotine dependence; Z82.49 Family history of ischemic heart disease and other diseases of the circulatory system
CPT/HCPCS: 36415; 70496; 70498; 71045; 80048; 80061; 82962; 83036; 83735; 83880; 84484; 85025; 87426; 93005; 94070; 94640; 94664; 94760; 96374; 96375; 99285; J1938; J2270; J2919; Q9967